=== PATIENT | female | born 1990 | race Caucasian/White ===

== ENCOUNTER 2016-09-02 19:39 | Emergency (ER) | payer BC ==
[2016-09-02 20:21] VITALS: BP 119/86
--- NOTE | 2016-09-02 21:39 | UC ---
UC General HPI - HPI Summary HPI Summary: The patient comes in today for: 1. "I've felt, dizzy, nauseated, flushed, fevers, chills, lower back pain, abdominal pain (RLQ): Onset: Yesterday. Palliative/provocative: Resting, drinking "a lot of water." Walking "around" makes me feel more dizzy or nauseated." Dramamine helped when taken yesterday. Quality: Dizzy (vertigo) Region: Abdominal pain (RLQ) Severity: (back: 6/10, abdomen: 5/10) Time: "fairly constant." Associated symptoms: Dizziness: she describes vertigo. Diarrhea: She states that this started yesterday. She has had 6/24 hours. Last one = "a couple hours ago." LMP: started yesterday and "I feel off." Temperature: None taken at home. * - History of Current Complaint Chief Complaint: UCGeneralIllness Stated Complaint: FEVERISH Time Seen by Provider: 09/02/16 21:31 Hx Obtained From: Patient - Allergy/Home Medications Allergies/Adverse Reactions: Allergies Allergy/AdvReac Type Severity Reaction Status Date / Time No Known Allergies Allergy Verified 09/02/16 20:21 Home Medications: Home Medications Cyclobenzaprine TAB* [Flexeril TAB*] 10 mg PO BID PRN 09/02/16 [History Confirmed 09/02/16] oxyCODONE/Acetamin 5/325 MG* [Percocet 5/325 TAB*] 1 tab PO Q4H PRN 09/02/16 [ History Confirmed 09/02/16] PMH/Surg Hx/FS Hx/Imm Hx Previously Healthy: No - Lower back pain, sciatica. Endocrine History Of: Denies: Diabetes, Thyroid Disease, Hyperthyroidism, Hypothyroidism, Dyslipidemia Cardiovascular History Of: Denies: Cardiac Disorders, Hypertension, Pacemaker/ICD, Myocardial Infarction , Congestive Heart Failure, Atrial Fibrillation, Deep Vein Thrombosis, Bleeding Disorders Respiratory History Of: Reports: Asthma - She does not use an inhaler regularly. Denies: COPD, Bronchitis, Pneumonia, Pulmonary Embolism GI/ History Of: Denies: Gastroesophageal Reflux, Ulcer, Gastrointestinal Bleed, Gall Bladder Disease, Kidney Stones, Diverticulitis, Renal Disease, Urosepsis Neurological History Of: Denies: TIA, CVA, Dementia, Seizures, Migraine Psychological History Of: Reports: Anxiety, Depression - pasr episode was treated with medications but stopped about 3 years ago as Denies: Bipolar Disorder, Schizophrenia, Post Traumatic Stress Disorder Cancer History Of: Denies: Lung Cancer, Colorectal Cancer, Breast Cancer, Prostate Cancer, Cervical Cancer Other History Of: Negative For: HIV, Hepatitis B, Hepatitis C, Anticoagulant Therapy - Surgical History Surgical History: None Surgery Procedure, Year, and Place: ADOIDS OUT WHEN A KID - Family History Known Family History: Positive: Hypertension, Diabetes Negative: Cardiac Disease - Social History Occupation: Employed Full-time Alcohol Use: Occasionally Substance Use Type: None Smoking Status (MU): Never Smoked Tobacco Review of Systems Constitutional: Negative Skin: Negative Eyes: Negative ENT: Negative Respiratory: Negative Cardiovascular: Negative Gastrointestinal: Abdominal Pain Genitourinary: Negative All Other Systems Reviewed And Are Negative: Yes Physical Exam Triage Information Reviewed: Yes Appearance: Well-Appearing, No Pain Distress, Well-Nourished Vital Signs: Initial Vital Signs Temp 98.5 F 09/02/16 20:17 Pulse 106 09/02/16 20:17 Resp 20 09/02/16 20:17 BP 119/86 09/02/16 20:17 Pulse Ox 100 09/02/16 20:17 Vital Signs Reviewed: Yes Eyes: Positive: Conjunctiva Clear. Negative: Discharge ENT: Positive: Hearing grossly normal. Negative: Pharyngeal erythema, Nasal congestion, Nasal drainage, TM bulging, TM dull, TM red, Tonsillar swelling, Tonsillar exudate Dental: Negative: Gross Decay/Caries @, Dental Fracture @ Neck: Positive: Supple, Nontender, No Lymphadenopathy. Negative: Nuchal Rigidity Respiratory: Positive: Chest non-tender, Lungs clear, No respiratory distress. Negative: Crackles, Wheezing Cardiovascular: Positive: RRR, No Murmur Abdomen Description: Positive: No Organomegaly, Soft. Negative: Nontender - She had minimal tenderness to the RLQ. No rebound or percussion tenderness., Distended, Guarding Musculoskeletal: Positive: Strength Intact, ROM Intact Neurological: Positive: Alert, Muscle Tone Normal Psychological: Positive: Age Appropriate Behavior, Consolable Skin: Negative: rashes, breakdown Course/Dx - Course Course Of Treatment: The patient was told that I don't know for sure why she is feeling what she is feeling, but suspect that she may very well have a viral infection causing her symptoms. I recommended medication for her vertigo/ nausea and she stated that she just wanted to go with the OT Dramamine. She was encouraged to measure her temperature at home and if she has a temperature higher than 100.4, she should be re-seen. She was given re-assurance that her urine was unremarkable. She was told that I did not know what was causing her abdominal pain. The patient was told that I don't know for sure what is causing her abdominal. pain. The patient was also told that there are many causes for abdominal pain--. some which are benign and some which are life- threatening. Furthermore, it was. mentioned that the life-threatening causes of abdominal pain can present with. minimal, atypical, or even no symptoms. Becasue of these facts and the fact. that we don't have here all the testing methods commonly used to assess abdominal. pain, and their timely resuts, my recommendation is for the patient to go to. the [facility] ([facility]) ER. However, she does not want to do that. - Differential Dx - Multi-Symptom Provider Diagnoses: vertigo. viral syndrome. abdominal pain. chronic lower back pain. Discharge - Discharge Plan Condition: Stable Disposition: AGAINST MEDICAL ADVICE Patient Education Materials: Abdominal Pain (ED), Vertigo (ED), Fatigue (ED) Additional Instructions: If you are not going to the ER for evaluation of your abdominal pain, please see your primary care provider as soon as you can.
== END 2016-09-02 22:00 | disposition left against medical advice (07) ==
LOC: MERGE 19:39 → UCEAST 19:39
DX: R42 Dizziness and giddiness (principal); B34.9 Viral infection, unspecified; R10.31 Right lower quadrant pain; M54.5 Low back pain
CPT/HCPCS: 81002; 99212; G0463

== ENCOUNTER 2016-09-05 19:10 | Emergency (ER) | payer BC ==
[2016-09-05] MEDS ORDERED: NS 0.9% 1000 ML* 1,000 ML IV ONE (19:30)
[2016-09-05] MEDS ORDERED: Ondansetron INJ* 2 MG/ML VIAL IV ONE (19:30)
[2016-09-05 19:54] LABS: Hematocrit 42 % (35-47); Mean Corpuscular HGB Conc 34 g/dl (31-36); Mean Corpuscular Hemoglobin 29 pg (27-31); Mean Corpuscular Volume 86 fL (80-97); Mean Platelet Volume 9 um3 (7.4-10.4); Red Blood Count 4.85 10^6/ul (4.0-5.4); Red Cell Distribution Width 13 % (10.5-15); White Blood Count 10.5 10^3/ul (3.5-10.8)
[2016-09-05 19:54] LABS: Urine Bacteria 1+ (Absent); Urine Bilirubin Negative (Negative); Urine Glucose Negative (Negative); Urine Nitrite Negative (Negative)
[2016-09-05 20:12] LABS: Albumin 4.6 g/dL (3.2-5.2); C Reactive Protein 1.46 mg/L (< 5.00); Calcium 9.4 mg/dL (8.6-10.3); EGFR African American 113.9 (>60); EGFR Non-African American 88.6 (>60); Magnesium 2.1 mg/dL (1.9-2.7); Potassium 3.3 mmol/L (3.5-5.0); Total Bilirubin 0.5 mg/dL (0.2-1.0); Total Protein 7.6 g/dL (6.4-8.9)
--- NOTE | 2016-09-05 20:20 | ED ---
Jose Bustos Billy, scribed for Oscar Spann MD on 09/05/16 at 1933 . Complex/Multi-Sys Presentation - HPI Summary HPI Summary: Patient is a 25 year-old female coming to [facility] with intermittent episodes of N/ V/D for 5 days. She had 1x episode of emesis, 3x episodes of diarrhea today. Denies fever. She has taken dramamine with some improvement to her symptoms. She also reports several "anxiety attacks" in the last few days, which she has had previously. She was seen at [facility] 2 days ago and was instructed to visit the ED if her symptoms failed to improve. - History Of Current Complaint Chief Complaint: EDNauseaVomitDiarrh Time Seen by Provider: 09/05/16 19:24 Hx Obtained From: Patient Onset/Duration: Gradual Onset, Lasting Days, Still Present Timing: Intermittent, Lasting: Severity Currently: Moderate Severity Initially: Moderate Aggravating Factor(s): n/a Alleviating Factor(s): dramamine Associated Signs And Symptoms: Positive: Nausea, Vomiting, Diarrhea, Other - "anxiety attacks". Negative: Fever - Allergies/Home Medications Allergies/Adverse Reactions: Allergies Allergy/AdvReac Type Severity Reaction Status Date / Time Acetaminophen [From Percocet] Allergy Shortness Verified 09/05/16 19:33 of Breath Oxycodone [From Percocet] Allergy Shortness Verified 09/05/16 19:33 of Breath PMH/Surg Hx/FS Hx/Imm Hx Endocrine/Hematology History: Denies: Hx Anticoagulant Therapy, Hx Diabetes, Hx Thyroid Disease Cardiovascular History: Denies: Hx Congestive Heart Failure, Hx Deep Vein Thrombosis, Hx Hypertension , Hx Myocardial Infarction, Hx Pacemaker/ICD Respiratory History: Reports: Hx Asthma - She does not use an inhaler regularly. Denies: Hx Chronic Obstructive Pulmonary Disease (COPD), Hx Lung Cancer, Hx Pneumonia, Hx Pulmonary Embolism GI History: Denies: Hx Gall Bladder Disease, Hx Gastrointestinal Bleed, Hx Ulcer, Hx Urosepsis History: Denies: Hx Kidney Stones, Hx Renal Disease Musculoskeletal History: Reports: Hx Back Problems Neurological History: Denies: Hx Dementia, Hx Migraine, Hx Seizures, Hx Transient Ischemic Attacks (TIA) Psychiatric History: Reports: Hx Anxiety, Hx Depression - pasr episode was treated with medications but stopped about 3 years ago as Denies: Hx Schizophrenia, Hx Bipolar Disorder - Surgical History Surgery Procedure, Year, and Place: ADOIDS OUT WHEN A KID Infectious Disease History: No Infectious Disease History: Denies: Hx Hepatitis, Hx Human Immunodeficiency Virus (HIV), History Other Infectious Disease, Traveled Outside the [place] in Last 30 Days - Family History Known Family History: Positive: Hypertension, Diabetes Negative: Cardiac Disease - Social History Alcohol Use: Occasionally Substance Use Type: Reports: None Smoking Status (MU): Never Smoked Tobacco Review of Systems Negative: Fever Positive: Vomiting, Diarrhea, Nausea Positive: Anxious - "anxiety attacks" All Other Systems Reviewed And Are Negative: Yes Physical Exam Triage Information Reviewed: Yes Vital Signs On Initial Exam: Initial Vitals Temp Pulse Resp BP Pulse Ox 98.8 F 101 15 147/77 100 09/05/16 19:12 09/05/16 19:12 09/05/16 19:12 09/05/16 19:12 09/05/16 19:12 Vital Signs Reviewed: Yes Appearance: Positive: Well-Appearing, No Pain Distress Skin: Positive: Warm Head/Face: Positive: Normal Head/Face Inspection Eyes: Positive: FRANDY ENT: Positive: Hearing grossly normal Neck: Positive: Supple Respiratory/Lung Sounds: Positive: Clear to Auscultation, Breath Sounds Present Cardiovascular: Positive: Normal Abdomen Description: Positive: Nontender, Soft Bowel Sounds: Positive: Present Neurological: Positive: Alert, Oriented to Person Place, Time Psychiatric: Positive: Affect/Mood Appropriate Diagnostics - Vital Signs Vital Signs Temp Pulse Resp BP Pulse Ox 09/05/16 19:12 98.8 F 101 15 147/77 100 - Laboratory Lab Results: Lab Results 09/05/16 09/05/16 09/05/16 Range/Units 19:35 19:45 19:45 WBC 10.5 (3.5-10.8) 10^3/ul RBC 4.85 (4.0-5.4) 10^6/ul Hgb 14.0 (12.0-16.0) g/dl Hct 42 (35-47) % MCV 86 (80-97) fL MCH 29 (27-31) pg MCHC 34 (31-36) g/dl RDW 13 (10.5-15) % Plt Count 285 (150-450) 10^3/ul MPV 9 (7.4-10.4) um3 Neut % (Auto) 69.0 (38-83) % Lymph % (Auto) 23.8 L (25-47) % [place] % (Auto) 5.6 (1-9) % Eos % (Auto) 1.0 (0-6) % Baso % (Auto) 0.6 (0-2) % Absolute Neuts (auto) 7.2 (1.5-7.7) 10^3/ul Absolute Lymphs (auto) 2.5 (1.0-4.8) 10^3/ul Absolute Monos (auto) 0.6 (0-0.8) 10^3/ul Absolute Eos (auto) 0.1 (0-0.6) 10^3/ul Absolute Basos (auto) 0.1 (0-0.2) 10^3/ul Absolute Nucleated RBC 0 10^3/ul Nucleated RBC % 0 Sodium 131 L (133-145) mmol/L Potassium 3.3 L (3.5-5.0) mmol/L Chloride 112 H (101-111) mmol/L Carbon Dioxide 23 (22-32) mmol/L Anion Gap -4 L (2-11) mmol/L BUN 7 (6-24) mg/dL Creatinine 0.78 (0.51-0.95) mg/dL Est GFR ( Amer) 113.9 (>60) Est GFR (Non-Af Amer) 88.6 (>60) BUN/Creatinine Ratio 9.0 (8-20) Glucose 101 H (70-100) mg/dL Lactic Acid (0.5-2.0) mmol/L Calcium 9.4 (8.6-10.3) mg/dL Magnesium 2.1 (1.9-2.7) mg/dL Total Bilirubin 0.50 (0.2-1.0) mg/dL AST 13 (13-39) U/L ALT 9 (7-52) U/L Alkaline Phosphatase 57 (34-104) U/L C-Reactive Protein 1.46 (< 5.00) mg/L Total Protein 7.6 (6.4-8.9) g/dL Albumin 4.6 (3.2-5.2) g/dL Globulin 3.0 (2-4) g/dL Albumin/Globulin Ratio 1.5 (1-3) Lipase 24 (11.0-82.0) U/L Urine Color Yellow Urine Appearance Clear Urine pH 5.0 (5-9) Ur Specific [place] 1.011 (1.010-1.030) Urine Protein Negative (Negative) Urine Ketones 1+ H (Negative) Urine Blood 1+ H (Negative) Urine Nitrate Negative (Negative) Urine Bilirubin Negative (Negative) Urine Urobilinogen Negative (Negative) Ur Leukocyte Esterase Negative (Negative) Urine WBC (Auto) Trace(0-5/hpf) (Absent) Urine RBC (Auto) Trace(0-2/hpf) (Absent) Ur Squamous Epith Cells Present H (Absent) Urine Bacteria 1+ H (Absent) Urine Glucose Negative (Negative) 09/05/16 Range/Units 19:45 WBC (3.5-10.8) 10^3/ul RBC (4.0-5.4) 10^6/ul Hgb (12.0-16.0) g/dl Hct (35-47) % MCV (80-97) fL MCH (27-31) pg MCHC (31-36) g/dl RDW (10.5-15) % Plt Count (150-450) 10^3/ul MPV (7.4-10.4) um3 Neut % (Auto) (38-83) % Lymph % (Auto) (25-47) % [place] % (Auto) (1-9) % Eos % (Auto) (0-6) % Baso % (Auto) (0-2) % Absolute Neuts (auto) (1.5-7.7) 10^3/ul Absolute Lymphs (auto) (1.0-4.8) 10^3/ul Absolute Monos (auto) (0-0.8) 10^3/ul Absolute Eos (auto) (0-0.6) 10^3/ul Absolute Basos (auto) (0-0.2) 10^3/ul Absolute Nucleated RBC 10^3/ul Nucleated RBC % Sodium (133-145) mmol/L Potassium (3.5-5.0) mmol/L Chloride (101-111) mmol/L Carbon Dioxide (22-32) mmol/L Anion Gap (2-11) mmol/L BUN (6-24) mg/dL Creatinine (0.51-0.95) mg/dL Est GFR ( Amer) (>60) Est GFR (Non-Af Amer) (>60) BUN/Creatinine Ratio (8-20) Glucose (70-100) mg/dL Lactic Acid 1.0 (0.5-2.0) mmol/L Calcium (8.6-10.3) mg/dL Magnesium (1.9-2.7) mg/dL Total Bilirubin (0.2-1.0) mg/dL AST (13-39) U/L ALT (7-52) U/L Alkaline Phosphatase (34-104) U/L C-Reactive Protein (< 5.00) mg/L Total Protein (6.4-8.9) g/dL Albumin (3.2-5.2) g/dL Globulin (2-4) g/dL Albumin/Globulin Ratio (1-3) Lipase (11.0-82.0) U/L Urine Color Urine Appearance Urine pH (5-9) Ur Specific [place] (1.010-1.030) Urine Protein (Negative) Urine Ketones (Negative) Urine Blood (Negative) Urine Nitrate (Negative) Urine Bilirubin (Negative) Urine Urobilinogen (Negative) Ur Leukocyte Esterase (Negative) Urine WBC (Auto) (Absent) Urine RBC (Auto) (Absent) Ur Squamous Epith Cells (Absent) Urine Bacteria (Absent) Urine Glucose (Negative) Result Diagrams: 09/05/16 19:45 09/05/16 19:45 Lab Statement: Any lab studies that have been ordered have been reviewed, and results considered in the medical decision making process. Re-Evaluation - Re-Evaluation First Eval Change: Improved Complex Multi-Symp Course/Dx Assessment/Plan: 25 y/o female coming to the ED with CC of 5 days of N/V/D. No fever. Sx improved in the ED with Zofran and IV fluids. She will be discharged to follow up with PCP. - Diagnoses Provider Diagnoses: Nausea & vomiting Discharge - Discharge Plan Condition: Stable Disposition: HOME Patient Education Materials: Diet for Ulcers and Gastritis (ED) Referrals: Joy Lazo PA [Primary Care Provider] - Additional Instructions: INCREASE FLUID INTAKE AND FOLLOW UP WITH YOUR PRIMARY CARE PROVIDER. The documentation as recorded by the Jose toro Billy accurately reflects the service I personally performed and the decisions made by , Oscar Spann MD.
[2016-09-05 21:07] VITALS: BP 122/75
== END 2016-09-05 21:14 | disposition home or self-care (01) ==
LOC: MERGE 19:10 → ED 19:10
DX: R11.2 Nausea with vomiting, unspecified (principal); Z95.810 Presence of automatic (implantable) cardiac defibrillator; Z88.5 Allergy status to narcotic agent
CPT/HCPCS: 36415; 80053; 81003; 81015; 83605; 83690; 83735; 85025; 86140; 87086; 96360; 96365; 96374; 99283; J2405

== ENCOUNTER 2016-09-08 10:40 | Emergency (ER) | payer BC ==
[2016-09-08] MEDS ORDERED: NS 0.9% 1000 ML* 1,000 ML IV ONE (12:03)
[2016-09-08] MEDS ORDERED: Ondansetron INJ* 2 MG/ML VIAL IV ONE (12:19)
--- NOTE | 2016-09-08 13:05 | RAD ---
HISTORY: Nausea and diarrhea COMPARISONS: None VIEWS: Frontal views of the abdomen. FINDINGS: BOWEL: There is a nonspecific bowel gas pattern, with nondilated small bowel gas noted. There is large amount of stool within the proximal colon. CALCULI: There is high attenuation material overlying the left hemiabdomen BONES AND SOFT TISSUES: There are no osseous abnormalities. OTHER FINDINGS: The lung bases are clear. There is no subphrenic gas. IMPRESSION: 1. NONSPECIFIC BOWEL GAS PATTERN. LARGE AMOUNT OF STOOL WITHIN THE PROXIMAL COLON. HIGH ATTENUATION MATERIAL OVERLYING THE LEFT HEMIABDOMEN WHICH MAY REPRESENT HIGH ATTENUATION BOWEL CONTENTS VERSUS DYSTROPHIC CALCIFICATION. THIS APPEARS EXTRINSIC TO THE RENAL PARENCHYMAL SHADOW.
[2016-09-08 13:13] LABS: Hematocrit 42 % (35-47); Mean Corpuscular HGB Conc 34 g/dl (31-36); Mean Corpuscular Hemoglobin 29 pg (27-31); Mean Corpuscular Volume 86 fL (80-97); Mean Platelet Volume 10 um3 (7.4-10.4); Red Blood Count 4.85 10^6/ul (4.0-5.4); Red Cell Distribution Width 13 % (10.5-15); White Blood Count 9.2 10^3/ul (3.5-10.8)
[2016-09-08 13:19] LABS: Urine Bilirubin Negative (Negative); Urine Glucose Negative (Negative); Urine Nitrite Negative (Negative)
[2016-09-08 13:47] LABS: ALT 9 U/L (7-52); AST 13 U/L (13-39); Albumin 4.5 g/dL (3.2-5.2); Alkaline Phosphatase 60 U/L (34-104); Amylase 36 U/L (29-103); Anion Gap 8 mmol/L (2-11); BUN/Creatinine Ratio 8.2 (8-20); Blood Urea Nitrogen 6 mg/dL (6-24); C Reactive Protein 1.27 mg/L (< 5.00); CO2 Carbon Dioxide 24 mmol/L (22-32); Calcium 9.6 mg/dL (8.6-10.3); Chloride 106 mmol/L (101-111); EGFR Non-African American 95.6 (>60); Globulin 2.9 g/dL (2-4); Glucose 96 mg/dL (70-100); Lipase 26 U/L (11.0-82.0); Magnesium 2.3 mg/dL (1.9-2.7); Potassium 3.7 mmol/L (3.5-5.0); Sodium 138 mmol/L (133-145); Total Protein 7.4 g/dL (6.4-8.9)
[2016-09-08] MEDS ORDERED: hydrOXYzine HCL TAB* 50 MG PO ONE (14:00)
--- NOTE | 2016-09-08 14:01 | ED ---
I, Isaías,Terrance, scribed for Anand Hooks MD on 09/08/16 at 1252 . GI/ HPI - HPI Summary HPI Summary: This 25 y/o female presents to ED for nausea and persistent watery diarrhea since 1 week. Pt was evaluated in [facility] care and ED several times with similar complaints over the last week. Pt decided to visit ED today when she experienced lightheaded dizziness and became concerned with her electrolytes. She also reports a bout of sciatic pain and increased anxiety today. PMHx does include anxiety. FHx is positive for DM, cardiac dz, and unspecified CA. Pt is rare drinker and nonsmoker. - History of Current Complaint Chief Complaint: EDNauseaVomitDiarrh Time Seen by Provider: 09/08/16 12:03 Stated Complaint: NAUSEA /DIARRHEA/LIGHT HEADED Hx Obtained From: Patient Onset/Duration: Started Weeks Ago, Still Present Timing: Constant Pain Intensity: 7 Location of Pain: None Associated Signs and Symptoms: Positive: Dizziness - lightheadedness, Nausea, Diarrhea, Lightheadedness. Negative: Fever Aggravating Factor(s): Nothing Alleviating Factor(s): Nothing - Allergy/Home Medications Allergies/Adverse Reactions: Allergies Allergy/AdvReac Type Severity Reaction Status Date / Time Acetaminophen [From Percocet] Allergy Shortness Verified 09/08/16 11:12 of Breath Oxycodone [From Percocet] Allergy Shortness Verified 09/08/16 11:12 of Breath PMH/Surg Hx/FS Hx/Imm Hx Endocrine/Hematology History: Denies: Hx Anticoagulant Therapy, Hx Diabetes, Hx Thyroid Disease Cardiovascular History: Denies: Hx Congestive Heart Failure, Hx Deep Vein Thrombosis, Hx Hypertension , Hx Myocardial Infarction, Hx Pacemaker/ICD Respiratory History: Reports: Hx Asthma - She does not use an inhaler regularly. Denies: Hx Chronic Obstructive Pulmonary Disease (COPD), Hx Lung Cancer, Hx Pneumonia, Hx Pulmonary Embolism GI History: Denies: Hx Gall Bladder Disease, Hx Gastrointestinal Bleed, Hx Ulcer, Hx Urosepsis History: Denies: Hx Kidney Stones, Hx Renal Disease Musculoskeletal History: Reports: Hx Back Problems Neurological History: Denies: Hx Dementia, Hx Migraine, Hx Seizures, Hx Transient Ischemic Attacks (TIA) Psychiatric History: Reports: Hx Anxiety, Hx Depression - pasr episode was treated with medications but stopped about 3 years ago as Denies: Hx Schizophrenia, Hx Bipolar Disorder - Surgical History Surgery Procedure, Year, and Place: ADOIDS OUT WHEN A KID - Immunization History Date of Tetanus Vaccine: unk Date of Influenza Vaccine: none Infectious Disease History: No Infectious Disease History: Denies: Hx Hepatitis, Hx Human Immunodeficiency Virus (HIV), History Other Infectious Disease, Traveled Outside the [place] in Last 30 Days - Family History Known Family History: Positive: Hypertension, Diabetes, Other - unspecified CA Negative: Cardiac Disease - Social History Alcohol Use: Occasionally Hx Substance Use: No Substance Use Type: Reports: None Hx Tobacco Use: No Smoking Status (MU): Never Smoked Tobacco Review of Systems Negative: Fever Positive: Diarrhea, Nausea. Negative: Abdominal Pain Positive: Other - sciatic pain Positive: Anxious All Other Systems Reviewed And Are Negative: Yes Physical Exam - Summary Physical Exam Summary: VITAL SIGNS: Reviewed. GENERAL: Patient is an obese female who is lying comfortable in the stretcher. Patient is not in any acute respiratory distress. HEAD AND FACE: Normocephalic and atraumatic. EYES: PERRLA, EOMI x 2, No injected conjunctiva. EARS: Hearing grossly intact. Ear canals and tympanic membranes are WNL. MOUTH: Oropharynx within normal limits. NECK: Supple, trachea is midline, no adenopathy, no JVD. CHEST: Symmetric, no tenderness at palpation LUNGS: Clear to auscultation bilaterally. No wheezing or crackles. CVS: RRR,, S1 and S2 present, no murmurs or gallops appreciated. ABDOMEN: Soft, non-tender. No signs of distention. Positive bowel sounds. No rebound no guarding, and no masses palpated. No abdominal bruit or pulsations. EXTREMITIES: FROM in all major joints, no edema, no cyanosis or clubbing. NEURO: Alert and oriented x 3. No acute neurological deficits. Speech is normal. SKIN: Dry and warm Triage Information Reviewed: Yes Vital Signs On Initial Exam: Initial Vitals Temp Pulse Resp BP Pulse Ox 100.2 F 89 16 118/79 100 09/08/16 10:48 09/08/16 10:48 09/08/16 10:48 09/08/16 10:48 09/08/16 10:48 Vital Signs Reviewed: Yes - [place] Coma Scale Coma Scale Total: 15 Diagnostics - Vital Signs Vital Signs Temp Pulse Resp BP Pulse Ox 09/08/16 10:48 100.2 F 89 16 118/79 100 - Laboratory Result Diagrams: 09/08/16 12:55 09/08/16 12:55 Lab Statement: Any lab studies that have been ordered have been reviewed, and results considered in the medical decision making process. - Radiology Abd Xray Interpretation: Positive (See Comments) - NONSPECIFIC BOWEL GAS PATTERN. LARGE AMOUNT OF STOOL WITHIN THE PROXIMAL COLON. HIGH ATTENUATION MATERIAL OVERLYING THE LEFT HEMIABDOMEN WHICH MAY REPRESENT HIGH ATTENUATION BOWEL CONTENTS VERSUS DYSTROPHIC CALCIFICATION. THIS APPEARS EXTRINSIC TO THE RENAL PARENCHYMAL SHADOW. Radiology Interpretation Completed By: Radiologist [place] Course/Dx - Course Assessment/Plan: 25 y/o female here c / o nausea, vomiting and diarrhea since last Wednesday. She reports diarrhea is watery w/o blood or mucus. She denies any recent travel, sick contacts or antibiotic use. She reports no abdominal pain. She also reports exacerbation of a right sciatic pain and anxiety. She denies any vaginal bleeding or discharge. She has no other complaints. P/E wnl.\. Abdominal X-ray impression: Nonspecific bowel gas pattern. Large amount of stool with the proximal colon. After hydration with IV fluids and Zofran for nausea and vomiting patient is feeling much improved. Patient has not been able to give a stool sample. She declines a pelvic exam since she has no vaginal discharge or bleeding. I discussed all the findings and test results with the patient and patient. Patient was instructed to return to the emergency room immediately if any of the symptoms return or worsens. They understand and agree. They were explained the possibility of an early abdominal pathology which was not detected at this time despite the physical exam and testing. They understand and agree. Abdominal exam before discharge: Soft,NT. No signs of distention. BS present. No rebound no guarding, and no masses palpated. Patient is alert and oriented. Patient is hemodynamically stable. Patient is to follow up with primary care physician in the next 24 hours. Patient and patients parents agree and understands. - Diagnoses Differential Diagnoses - Female: Constipation, Colitis, Gastroenteritis (Viral) , Gastroenteritis (Bacterial), Gerd, Irritable Bowel Syndrome Provider Diagnoses: Nausea vomiting and diarrhea Discharge - Discharge Plan Condition: Stable Disposition: HOME Prescriptions: Ondansetron ODT TAB* [Zofran Odt TAB*] 4 mg PO Q8H PRN #10 tab.odt PRN Reason: Vomiting Referrals: Joy Lazo PA [Primary Care Provider] - The documentation as recorded by the Isaías toro Soohyun accurately reflects the service I personally performed and the decisions made by me, Anand Hooks MD.
[2016-09-08] MEDS ORDERED: hydrOXYzine HCL TAB* 25 MG ONE (14:27)
[2016-09-08 14:41] VITALS: BP 130/69
== END 2016-09-08 14:40 | disposition home or self-care (01) ==
LOC: MERGE 10:40 → ED 10:40
DX: R11.2 Nausea with vomiting, unspecified (principal); R19.7 Diarrhea, unspecified; Z88.5 Allergy status to narcotic agent; Z88.6 Allergy status to analgesic agent
CPT/HCPCS: 36415; 74020; 80053; 81003; 82150; 83605; 83690; 83735; 84702; 85025; 86140; 96361; 96374; 99283; A9270-GY; J2405

== ENCOUNTER 2016-10-12 00:47 | Emergency (ER) | payer BC ==
[2016-10-12] MEDS ORDERED: NS 0.9% 1000 ML* 1,000 ML IV ONE (01:34)
[2016-10-12] MEDS ORDERED: Ondansetron INJ* 2 MG/ML VIAL IV ONE (02:10)
[2016-10-12] MEDS: Morphine INJ* 4 MG/ML 1 ML CARPUJECT IV ONE ×3 (02:15→05:32)
[2016-10-12 02:20] LABS: Hematocrit 40 % (35-47); Hemoglobin 13.3 g/dl (12.0-16.0); Mean Corpuscular HGB Conc 34 g/dl (31-36); Mean Corpuscular Hemoglobin 29 pg (27-31); Mean Corpuscular Volume 85 fL (80-97); Mean Platelet Volume 10 um3 (7.4-10.4); Red Blood Count 4.65 10^6/ul (4.0-5.4); Red Cell Distribution Width 13 % (10.5-15); White Blood Count 10.8 10^3/ul (3.5-10.8)
[2016-10-12 02:21] LABS: Add Diff/Slide Review? Slide Review Added; Comments Flag Yes
[2016-10-12 02:31] LABS: Albumin 4.3 g/dL (3.2-5.2); Calcium 9.3 mg/dL (8.6-10.3); EGFR Non-African American 98.7 (>60); Globulin 2.7 g/dL (2-4); Potassium 3.3 mmol/L (3.5-5.0); Total Bilirubin 0.9 mg/dL (0.2-1.0)
[2016-10-12 03:30] LABS: Urine Bacteria Absent (Absent); Urine Bilirubin Negative (Negative); Urine Glucose Negative (Negative); Urine Nitrite Negative (Negative)
[2016-10-12] MEDS ORDERED: Iohexol 300* (CONTRAST) 10 ML SDV IV ONE (04:06)
[2016-10-12 05:34] VITALS: BP 114/75
--- NOTE | 2016-10-12 06:28 | ED ---
Sunni Bustos Matthew, scribed for Elias Lei MD on 10/12/16 at 0150 . Abdominal Pain/Female - HPI Summary HPI Summary: A 25 y/o female presents to the ED with diffuse lower abdominal pain and bilateral flank pain since 10/07/16. The pain is rated 6/10 in severity. The patient started a course of Augmentin on 10/07/16 for an ear infection. Associated symptoms currently include SOB - which caused the patient to present to the ED today, lightheadedness, dizziness, more frequent loose stools, occasional diarrhea, and vomiting - only on 10/07/16. The patient denies blood w/ stool, urinary symptoms, and nausea. The patient had similar symptom in the beginning of August for 2 weeks, which resolved and have now returned. - History of Current Complaint Chief Complaint: EDAbdPain Stated Complaint: ABD PAIN Time Seen by Provider: 10/12/16 01:05 Hx Obtained From: Patient Hx Last Menstrual Period: yesterday ?: No Onset/Duration: Gradual Onset, Lasting Days, Still Present Timing: Constant Severity Initially: Moderate Severity Currently: Moderate Pain Intensity: 6 Pain Scale Used: 0-10 Numeric Location: Diffuse - lower abdominal, Flank - bilateral Radiates: No Aggravating Factor(s): Nothing Alleviating Factor(s): Nothing Associated Signs and Symptoms: Positive: Vomiting - only one 10/07/16, Diarrhea - Ocassional, Other: - SOB; Lightheadedness; Dizziness; Ocassional loose stools.. Negative: Blood in Stool, Urinary Symptoms, Nausea Allergies/Adverse Reactions: Allergies Allergy/AdvReac Type Severity Reaction Status Date / Time Acetaminophen [From Percocet] Allergy Shortness Verified 09/08/16 11:12 of Breath Oxycodone [From Percocet] Allergy Shortness Verified 09/08/16 11:12 of Breath PMH/Surg Hx/FS Hx/Imm Hx Endocrine/Hematology History: Denies: Hx Anticoagulant Therapy, Hx Diabetes, Hx Thyroid Disease Cardiovascular History: Denies: Hx Congestive Heart Failure, Hx Deep Vein Thrombosis, Hx Hypertension , Hx Myocardial Infarction, Hx Pacemaker/ICD Respiratory History: Reports: Hx Asthma - She does not use an inhaler regularly. Denies: Hx Chronic Obstructive Pulmonary Disease (COPD), Hx Lung Cancer, Hx Pneumonia, Hx Pulmonary Embolism GI History: Denies: Hx Gall Bladder Disease, Hx Gastrointestinal Bleed, Hx Ulcer, Hx Urosepsis History: Denies: Hx Kidney Stones, Hx Renal Disease Musculoskeletal History: Reports: Hx Back Problems Neurological History: Reports: Other Neuro Impairments/Disorders - Hx of sciatica Denies: Hx Dementia, Hx Migraine, Hx Seizures, Hx Transient Ischemic Attacks (TIA) Psychiatric History: Reports: Hx Anxiety, Hx Depression - pasr episode was treated with medications but stopped about 3 years ago as Denies: Hx Schizophrenia, Hx Bipolar Disorder - Surgical History Surgery Procedure, Year, and Place: ADOIDS OUT WHEN A KID - Immunization History Date of Tetanus Vaccine: unk Date of Influenza Vaccine: none Infectious Disease History: No Infectious Disease History: Denies: Hx Hepatitis, Hx Human Immunodeficiency Virus (HIV), History Other Infectious Disease, Traveled Outside the [place] in Last 30 Days - Family History Known Family History: Positive: Hypertension, Diabetes, Other - unspecified [place] Negative: Cardiac Disease - Social History Alcohol Use: Occasionally Hx Substance Use: No Substance Use Type: Reports: None Hx Tobacco Use: No Smoking Status (MU): Never Smoked Tobacco Review of Systems Constitutional: Negative Negative: Fever, Chills Eyes: Negative Negative: Erythema ENT: Negative Negative: Sore Throat Cardiovascular: Negative Negative: Chest Pain Positive: Shortness Of Breath Positive: Abdominal Pain - diffuse lower abdominal pain and bilateral flank pain , Vomiting - only on 10/07/16, Diarrhea. Negative: Nausea Genitourinary: Negative Negative: dysuria, hematuria Musculoskeletal: Other Negative: Myalgia, Edema - pedal Skin: Negative Negative: Rash Neurological: Other - Lightheadedness; Dizziness Psychological: Normal All Other Systems Reviewed And Are Negative: Yes Physical Exam Triage Information Reviewed: Yes Vital Signs On Initial Exam: Initial Vitals Temp Pulse Resp BP Pulse Ox 97.5 F 95 16 135/82 100 10/12/16 00:47 10/12/16 00:47 10/12/16 00:47 10/12/16 00:47 10/12/16 00:47 Vital Signs Reviewed: Yes Appearance: Positive: Well-Appearing, No Pain Distress, Well-Nourished Skin: Positive: Warm, Dry Head/Face: Positive: Other - Normocephalic; Atraumatic Eyes: Positive: Conjunctiva Clear Neck: Positive: Supple, No Lymphadenopathy, Other: - Full ROM; NO JVD Respiratory/Lung Sounds: Positive: Breath Sounds Present, Other - Normal Effort. Negative: Rales, Rhonchi, Stridor, Tracheal Deviation, Wheezes Cardiovascular: Positive: RRR, Other - Heart sounds normal; Intact distal pulses ; The pedal pulses are 2+ and symmetric. Radial pulses are 2+ and symmetric. Negative: Murmur Abdomen Description: Positive: Soft, Other: - RLQ tenderness; Negative psoas, negative obturator, negative Rovsings sign Musculoskeletal: Negative: Edema Left, Edema Right Neurological: Positive: Alert, Oriented to Person Place, Time Psychiatric: Positive: Affect/Mood Appropriate Diagnostics - Vital Signs Vital Signs Temp Pulse Resp BP Pulse Ox 10/12/16 00:47 97.5 F 95 16 135/82 100 - Laboratory Result Diagrams: 10/12/16 02:05 10/12/16 02:05 Lab Statement: Any lab studies that have been ordered have been reviewed, and results considered in the medical decision making process. - CT A/P W CT CT Interpretation: No Acute Changes - No inflammatory process identified in the abdomen or pelvis. No abdominal mass, adenopathy or collection seen. Right adnexal cyst noted. Abdominal Pain Fem Course/Dx - Diagnoses Provider Diagnoses: Adverse effect of antibiotic, Diarrhea, Unspecified ovarian cyst, right side Discharge - Discharge Plan Condition: Stable Disposition: HOME Patient Education Materials: Ovarian Cyst (ED), Acute Diarrhea (ED) Referrals: Joy Lazo PA [Primary Care Provider] - 2 Days Additional Instructions: Please follow-up with your primary care physician in 2 days. Return to the emergency department for changing or worsening symptoms The documentation as recorded by the Sunni toro Matthew accurately reflects the service I personally performed and the decisions made by me, Elias Lei MD.
--- NOTE | 2016-10-12 09:19 | RAD ---
CLINICAL HISTORY: Right lower quadrant tenderness. COMPARISON: None TECHNIQUE: Multiple contiguous axial CT scans were obtained of the abdomen and pelvis after the administration of intravenous contrast. Coronal and sagittal multiplanar reformations are submitted for review. Oral contrast was administered. Delayed images were obtained through the abdomen FINDINGS: LUNG BASES: The lung bases are clear. LIVER: The liver is diffusely low in attenuation compared to the spleen. There is more focal fatty infiltration along the ligamentum teres hepatis. BILE DUCTS: There is no intrahepatic or extrahepatic biliary dilatation. GALLBLADDER: The gallbladder is normal, without pericholecystic inflammatory change. PANCREAS: The pancreas is normal, without mass or ductal dilatation. SPLEEN: Normal in size and appearance. UPPER GI TRACT: Evaluation of the gastrointestinal tract is limited by incomplete gastric distention. The upper GI tract is unremarkable. SMALL BOWEL AND MESENTERY: The small bowel is normal in contour, course, and caliber. There is no obstruction or dilatation. COLON: The colon is normal in contour, course, caliber. There is no pericolonic inflammatory change. There is a tubular, vermiform, hollow viscus that is blind ending, and originates from the cecum, consistent with a normal appendix. There is no periappendiceal inflammatory change. This is best seen on axial images 124 through 143. ADRENALS: Normal bilaterally. KIDNEYS: The kidneys are normal in shape, size, contour, and axis. There is no hydronephrosis or nephrolithiasis. BLADDER: The bladder is incompletely distended but is grossly normal. PELVIC ORGANS: There is 2.5 cm right ovarian cyst. AORTA: The aorta is normal. IVC: Unremarkable LYMPH NODES: There is no lymphadenopathy by size criteria. ABDOMINAL WALL: There is no evidence for abdominal wall hernia. BONES AND SOFT TISSUES: Degenerative changes are noted of the spine most pronounced at L4-L5 and L5-S1. OTHER: None IMPRESSION: 1. NORMAL APPENDIX. 2. RIGHT OVARIAN CYST.
== END 2016-10-12 05:33 | disposition home or self-care (01) ==
LOC: ED 00:47
DX: R10.30 Lower abdominal pain, unspecified (principal); N83.201 Unspecified ovarian cyst, right side; R11.10 Vomiting, unspecified; R19.7 Diarrhea, unspecified; R06.02 Shortness of breath; R42 Dizziness and giddiness
CPT/HCPCS: 36415; 74177; 80053; 81003; 81015; 83605; 83690; 85025; 96374; 99283; J2270; J2405; Q9967

== ENCOUNTER 2016-10-17 16:49 | Emergency (ER) | payer BC ==
[2016-10-17 16:55] VITALS: BP 128/81
--- NOTE | 2016-10-17 17:42 | ED ---
Throat Pain/Nasal Congestion - HPI Summary HPI Summary: 25 female presents coming from work complaining of being nervous a probiotic pill went into her lungs. Patient said she was at work when she took a probiotic pill that seemed to have went down the wrong tube she was choking and vomited however the pill never came up. Does admit to feeling like some of the water may have went into her lungs. She is fine now and has not coughed or vomited since. She states she has anxiety and wanted to make sure it wasn't in her lungs. No difficulty breathing or chest pain. Denies hemoptysis. - History of Current Complaint Chief Complaint: EDForeignBodyEsophag Time Seen by Provider: 10/17/16 17:10 Hx Obtained From: Patient Onset/Duration: Sudden Onset Severity: Mild Associated Signs And Symptoms: Positive: FB Sensation - during incident, no longer has this sensation - Allergies/Home Medications Allergies/Adverse Reactions: Allergies Allergy/AdvReac Type Severity Reaction Status Date / Time Acetaminophen [From Percocet] Allergy Shortness Verified 09/08/16 11:12 of Breath Oxycodone [From Percocet] Allergy Shortness Verified 09/08/16 11:12 of Breath PMH/Surg Hx/FS Hx/Imm Hx Endocrine/Hematology History: Denies: Hx Anticoagulant Therapy, Hx Diabetes, Hx Thyroid Disease Cardiovascular History: Denies: Hx Congestive Heart Failure, Hx Deep Vein Thrombosis, Hx Hypertension , Hx Myocardial Infarction, Hx Pacemaker/ICD Respiratory History: Reports: Hx Asthma - She does not use an inhaler regularly. Denies: Hx Chronic Obstructive Pulmonary Disease (COPD), Hx Lung Cancer, Hx Pneumonia, Hx Pulmonary Embolism GI History: Denies: Hx Gall Bladder Disease, Hx Gastrointestinal Bleed, Hx Ulcer, Hx Urosepsis History: Denies: Hx Kidney Stones, Hx Renal Disease Musculoskeletal History: Reports: Hx Back Problems Neurological History: Reports: Other Neuro Impairments/Disorders - Hx of sciatica Denies: Hx Dementia, Hx Migraine, Hx Seizures, Hx Transient Ischemic Attacks (TIA) Psychiatric History: Reports: Hx Anxiety, Hx Depression - pasr episode was treated with medications but stopped about 3 years ago as Denies: Hx Schizophrenia, Hx Bipolar Disorder - Surgical History Surgery Procedure, Year, and Place: ADOIDS OUT WHEN A KID - Immunization History Date of Tetanus Vaccine: unk Date of Influenza Vaccine: none Infectious Disease History: No Infectious Disease History: Denies: Hx Hepatitis, Hx Human Immunodeficiency Virus (HIV), History Other Infectious Disease, Traveled Outside the [place] in Last 30 Days - Family History Known Family History: Positive: Hypertension, Diabetes, Other - unspecified [place] Negative: Cardiac Disease - Social History Alcohol Use: Occasionally Hx Substance Use: No Substance Use Type: Reports: None Hx Tobacco Use: No Smoking Status (MU): Never Smoked Tobacco Review of Systems Constitutional: Negative ENT: Negative Cardiovascular: Negative Respiratory: Negative 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 Neurological: Negative Positive: Anxious All Other Systems Reviewed And Are Negative: Yes Physical Exam Triage Information Reviewed: Yes Vital Signs On Initial Exam: Initial Vitals Temp Pulse Resp BP Pulse Ox 98.2 F 106 18 128/81 100 10/17/16 16:51 10/17/16 16:51 10/17/16 16:51 10/17/16 16:51 10/17/16 16:51 Vital Signs Reviewed: Yes Appearance: Positive: Well-Appearing - appears anxious, not coughing choking or vomiting on exam or while in ED., No Pain Distress, Well-Nourished Skin: Positive: Warm, Skin Color Reflects Adequate Perfusion - < 2 seconds, Dry Head/Face: Positive: Normal Head/Face Inspection Eyes: Positive: Normal, Conjunctiva Clear ENT: Positive: Normal ENT inspection, Hearing grossly normal, Pharynx normal, TMs normal Neck: Positive: Supple, Nontender, No Lymphadenopathy Respiratory/Lung Sounds: Positive: Clear to Auscultation, Breath Sounds Present. Negative: Decreased Breath Sounds, Rales, Rhonchi, Stridor, Tracheal Deviation, Wheezes, Unable to speak in full sentences Cardiovascular: Positive: Normal, RRR, Pulses are Symmetrical in both Upper and Lower Extremities, Tachycardia Neurological: Positive: Normal, Sensory/Motor Intact Psychiatric: Positive: Normal Diagnostics - Vital Signs Vital Signs Temp Pulse Resp BP Pulse Ox 10/17/16 16:51 98.2 F 106 18 128/81 100 - Laboratory Lab Statement: Any lab studies that have been ordered have been reviewed, and results considered in the medical decision making process. EENT Course/Dx - Course Course Of Treatment: patient was given a glass of water and was able to drink without any problem. she is no longer having coughing fits or vomiting. no longer feels a foreign body sensation. does not have difficulty breathing, SOB or chest pain. She will be discharged and re-assured that the pill did not go into her trachea. - Differential Diagnoses Differential Diagnoses: Foreign Body - Diagnoses Provider Diagnoses: Choking due to foreign body Discharge - Discharge Plan Condition: Stable Disposition: HOME Referrals: Joy Lazo PA [Primary Care Provider] - Additional Instructions: If you start to develop symptoms of being unable to eat or drink or difficulty breathing please seek medical attention promptly.
== END 2016-10-17 18:02 | disposition home or self-care (01) ==
LOC: ED 16:49
DX: T18.8XXA Foreign body in other parts of alimentary tract, initial encounter (principal); X58.XXXA Exposure to other specified factors, initial encounter; Y93.9 Activity, unspecified; Y92.9 Unspecified place or not applicable; R09.89 Other specified symptoms and signs involving the circulatory and respiratory systems
CPT/HCPCS: 99281

== ENCOUNTER 2016-10-18 09:26 | Emergency (ER) | payer BC ==
[2016-10-18 09:38] VITALS: BP 146/93
--- NOTE | 2016-10-18 09:57 | UC ---
UC General HPI - HPI Summary HPI Summary: complaint of anxiety and panic attacks since the beginning of 08/14 since July has had many illness- otitis media, gastroenteritis this past week started buspar with Joy SHEEHAN - started to see a therapist feels that the medication is starting to work but still feels anxiety about her health went to ED last night seen in ED for swallowing a probitoic and protein shake- wants her lung sounds rechecked not sleeping well - aprox 2-3 hours at a time not having any thoughts of self harm/suicide has a cysts on her back for many years, 2 years got infected and ruptured - today it is slightly swollen , not painful or warm - History of Current Complaint Chief Complaint: UCGeneralIllness Stated Complaint: HEART RACING LUMP ON BACK Time Seen by Provider: 10/18/16 09:48 - Allergy/Home Medications Allergies/Adverse Reactions: Allergies Allergy/AdvReac Type Severity Reaction Status Date / Time Acetaminophen [From Percocet] Allergy Shortness Verified 09/08/16 11:12 of Breath Oxycodone [From Percocet] Allergy Shortness Verified 09/08/16 11:12 of Breath Home Medications: Home Medications Citalopram TAB* [CeleXA TAB*] 10 mg PO DAILY 10/18/16 [History Confirmed ] busPIRone TAB* [Buspar TAB*] 5 mg PO BID 10/18/16 [History Confirmed 10/18/16] PMH/Surg Hx/FS Hx/Imm Hx Previously Healthy: No - anixety Endocrine History Of: Denies: Diabetes, Thyroid Disease, Hyperthyroidism, Hypothyroidism, Dyslipidemia Cardiovascular History Of: Denies: Cardiac Disorders, Hypertension, Pacemaker/ICD, Myocardial Infarction , Congestive Heart Failure, Atrial Fibrillation, Deep Vein Thrombosis, Bleeding Disorders Respiratory History Of: Reports: Asthma - She does not use an inhaler regularly. Denies: COPD, Bronchitis, Pneumonia, Pulmonary Embolism GI/ History Of: Denies: Gastroesophageal Reflux, Ulcer, Gastrointestinal Bleed, Gall Bladder Disease, Kidney Stones, Diverticulitis, Renal Disease, Urosepsis Neurological History Of: Denies: TIA, CVA, Dementia, Seizures, Migraine Psychological History Of: Reports: Anxiety, Depression - pasr episode was treated with medications but stopped about 3 years ago as Denies: Bipolar Disorder, Schizophrenia, Post Traumatic Stress Disorder Cancer History Of: Denies: Lung Cancer, Colorectal Cancer, Breast Cancer, Prostate Cancer, Cervical Cancer Other History Of: Negative For: HIV, Hepatitis B, Hepatitis C, Anticoagulant Therapy - Surgical History Surgical History: None Surgery Procedure, Year, and Place: ADOIDS OUT WHEN A KID - Family History Known Family History: Positive: Hypertension, Diabetes, Other - unspecified [place] Negative: Cardiac Disease - Social History Alcohol Use: Occasionally Substance Use Type: None Smoking Status (MU): Never Smoked Tobacco Review of Systems Constitutional: Negative Skin: Other - cysts on back Eyes: Negative ENT: Negative Respiratory: Negative Cardiovascular: Negative Gastrointestinal: Negative Genitourinary: Negative Motor: Negative Neurovascular: Negative Musculoskeletal: Negative Neurological: Negative Psychological: Anxious All Other Systems Reviewed And Are Negative: Yes Physical Exam Triage Information Reviewed: Yes Appearance: Well-Appearing, No Pain Distress, Well-Nourished, Other: - slioghtly anxious Vital Signs: Initial Vital Signs Temp 97.5 F 10/18/16 09:32 Pulse 102 10/18/16 09:32 Resp 20 10/18/16 09:32 BP 146/93 10/18/16 09:32 Pulse Ox 99 10/18/16 09:32 Vital Signs Reviewed: Yes Eyes: Positive: Conjunctiva Clear ENT: Positive: Pharynx normal, TMs normal. Negative: Nasal congestion Neck: Positive: No Lymphadenopathy Respiratory: Positive: Lungs clear, Normal breath sounds, No respiratory distress, No accessory muscle use Cardiovascular: Positive: RRR, No Murmur, Pulses Normal, Brisk Capillary Refill Abdomen Description: Positive: Nontender, No Organomegaly, Soft Bowel Sounds: Positive: Present Musculoskeletal: Positive: No Edema Neurological: Positive: Alert Psychological: Positive: Other: - slightly anxious and tearful Skin: Positive: Other - right side of back with 1x1cm area of scar tissue- no erythema induration -not warm to touch Course/Dx - Course Course Of Treatment: exam completed. patient is anxious but seems controlled- has good support system. no suicidal /homicidal ideation. willl followup with PCP - Differential Dx - Multi-Symptom Provider Diagnoses: anxiety. cyst Discharge - Discharge Plan Condition: Stable Disposition: HOME Patient Education Materials: Anxiety (ED) Referrals: Joy Lazo PA [Primary Care Provider] - Additional Instructions: Continue your regular medications as prescribed by Joy Lazo continue couseling review sleep hygiene handout and try to get more rest contact your primary care provider about having cyst removed by airplane rigger Please review your discharge instructions. If your symptoms do not improve please call your primary care provider or return to urgent care
== END 2016-10-18 10:23 | disposition home or self-care (01) ==
LOC: UCEAST 09:26
DX: F41.9 Anxiety disorder, unspecified (principal); L72.9 Follicular cyst of the skin and subcutaneous tissue, unspecified; Z88.6 Allergy status to analgesic agent; Z88.5 Allergy status to narcotic agent
CPT/HCPCS: 99211; G0463

== ENCOUNTER 2016-11-18 08:44 | Emergency (ER) | payer BC ==
[2016-11-18 09:06] VITALS: BP 128/76
--- NOTE | 2016-11-18 09:57 | UC ---
migue Bustos Timothy, scribed for Anand Hooks MD on 11/18/16 at 0913 . General HPI - HPI Summary HPI Summary: Consuelo Norwood is a 25 yo female presenting to [facility] with 3/10 left jaw pain and swelling since 11/17/16. She denies difficulty swallowing, sore throat, tooth ache, ear pain, or any other Sx. She states her neck is sore due to her anxiety. She states her roommate had the flu last week, and she has not had her flu shot. Her MHx includes sicatica, asthma, depression, and anxiety. - History of Current Complaint Stated Complaint: SWOLLEN LYMPH NODE Time Seen by Provider: 11/18/16 09:08 Hx Obtained From: Patient Onset/Duration: Sudden Onset, Lasting Days, Still Present Timing: Constant Onset Severity: Moderate Current Severity: Moderate Pain Intensity: 3 - /10 Pain Location at: left side of jaw Associated Signs & Symptoms: Positive: Other - left jaw pain and swelling - Allergy/Home Medications Allergies/Adverse Reactions: Allergies Allergy/AdvReac Type Severity Reaction Status Date / Time Acetaminophen [From Percocet] Allergy Shortness Verified 09/08/16 11:12 of Breath Oxycodone [From Percocet] Allergy Shortness Verified 09/08/16 11:12 of Breath PMH/Surg Hx/FS Hx/Imm Hx Endocrine History Of: Denies: Diabetes, Thyroid Disease, Hyperthyroidism, Hypothyroidism, Dyslipidemia Cardiovascular History Of: Denies: Cardiac Disorders, Hypertension, Pacemaker/ICD, Myocardial Infarction , Congestive Heart Failure, Atrial Fibrillation, Deep Vein Thrombosis, Bleeding Disorders Respiratory History Of: Reports: Asthma - She does not use an inhaler regularly. Denies: COPD, Bronchitis, Pneumonia, Pulmonary Embolism GI/ History Of: Denies: Gastroesophageal Reflux, Ulcer, Gastrointestinal Bleed, Gall Bladder Disease, Kidney Stones, Diverticulitis, Renal Disease, Urosepsis Neurological History Of: Denies: TIA, CVA, Dementia, Seizures, Migraine Psychological History Of: Reports: Anxiety, Depression - pasr episode was treated with medications but stopped about 3 years ago as Denies: Bipolar Disorder, Schizophrenia, Post Traumatic Stress Disorder Cancer History Of: Denies: Lung Cancer, Colorectal Cancer, Breast Cancer, Prostate Cancer, Cervical Cancer Other History Of: Negative For: HIV, Hepatitis B, Hepatitis C, Anticoagulant Therapy - Surgical History Surgical History: None Surgery Procedure, Year, and Place: ADOIDS OUT WHEN A KID - Family History Known Family History: Positive: Hypertension, Diabetes, Other - unspecified CA, thyroid disease Negative: Cardiac Disease - Social History Alcohol Use: Rare Substance Use Type: None Smoking Status (MU): Never Smoked Tobacco Review of Systems Constitutional: Negative Skin: Negative Eyes: Negative ENT: Other - left side jaw pain and swelling Respiratory: Negative Cardiovascular: Negative Gastrointestinal: Negative Genitourinary: Negative Motor: Negative Neurovascular: Negative Musculoskeletal: Negative Neurological: Negative Psychological: Negative All Other Systems Reviewed And Are Negative: Yes Physical Exam Triage Information Reviewed: Yes Vital Signs: Initial Vital Signs Temp 97.6 F 11/18/16 09:00 Pulse 98 11/18/16 09:00 Resp 18 11/18/16 09:00 BP 128/76 11/18/16 09:00 Pulse Ox 99 11/18/16 09:00 Vital Signs Reviewed: Yes - Additional Comments VITAL SIGNS: Reviewed. GENERAL: Patient is a well developed and nourished who is lying comfortable in the stretcher. Patient is not in any acute respiratory distress. HEAD AND FACE: Normocephalic. There is no nasal discharge. EYES: PERRLA, EOMI x 2. EARS: Hearing grossly intact. WNL MOUTH: Pharyngeal erythema without exudate. NECK: Supple, trachea is midline, no JVD, no carotid bruit. Parotid gland is not swollen or tender. There is some posterior neck lymphdenopathy. CHEST: Symmetric, no tenderness at palpation LUNGS: Clear to auscultation bilaterally. No wheezing or crackles. CVS: Regular rate and rhythm, S1 and S2 present, no murmurs or gallops appreciated. ABDOMEN: Soft, non-tender. Bowel sounds are normal. No abdominal abnormal pulsations. EXTREMITIES: FROM in all major joints, no edema, no cyanosis or clubbing. NEURO: Alert and oriented x 3. No acute neurological deficits. Speech is normal and follows commands. SKIN: Dry and warm Re-Evaluation - Re-Evaluation First Eval Re-Evaluation Time: 09:40 Change: Unchanged Comment: Discussed negative results of strep and rapid flu tests. Course/Dx - Course Course Of Treatment: Consuelo Norwood is a 25 yo female presenting to [facility] with 3/ 10 left jaw pain and swelling since 11/17/16. She denies difficulty swallowing, sore throat, tooth ache, ear pain, or any other Sx. She states her neck is sore due to her anxiety. She states her roommate had the flu last week, and she has not had her flu shot. Her MHx includes sciatica, asthma, depression, and anxiety. Rapid strep and influenza A and B tests were negative. I do not believe the Pt is dealing with parotitis or TMJ. I believe the Pt is dealing with viral lymphadenopathy. Pt was given instructions to return to [facility] or present to [facility] with increases in pain, increase in swelling, left side of the face and increase in neck pain, or fevers/chills. If these semptoms worsen we need to r/o Parotitis, however is low in my diffeenctioal since patient is up to date in her vaccinations and she has no sick contacts. Pt understands and agrees. She is hemodynamically stable and alert and oriented x3. - Differential Dx - Multi-Symptom Differential Diagnoses: Other - Flue, strep pharyngitis, Parotitis, Otitis media or externa, sinusitis, TMJ Provider Diagnoses: lymphadenopathy, viral illness Discharge - Discharge Plan Condition: Stable Disposition: HOME Patient Education Materials: Lymphadenopathy (ED), Viral Syndrome (ED) Referrals: Joy Lazo PA [Primary Care Provider] - 2 Days Additional Instructions: Please follow up with your primary care physician regarding your visit to urgent care today. Return to urgent care or the emergency department with any new or recurring symptoms. The documentation as recorded by the migue toro Timothy accurately reflects the service I personally performed and the decisions made by me, Anand Hooks MD.
== END 2016-11-18 09:53 | disposition home or self-care (01) ==
LOC: UCEAST 08:44
DX: B34.9 Viral infection, unspecified (principal); R59.1 Generalized enlarged lymph nodes; Z88.6 Allergy status to analgesic agent; Z88.5 Allergy status to narcotic agent
CPT/HCPCS: 87502; 87651; 99211; G0463

== ENCOUNTER 2017-07-20 11:05 | Emergency (ER) | payer BC ==
[2017-07-20 13:16] VITALS: BP 143/81
--- NOTE | 2017-07-25 21:18 | UC ---
Connie Bustos Gabriel, scribed for Mounika Plasencia MD on 07/20/17 at 1324 . Respiratory Complaint HPI - HPI Summary HPI Summary: This patient is a 26 year old F presenting to [facility] with a chief complaint of a productive cough with yellow sputum that began 8 days ago. Pt reports not sleeping well, sinus congestion, subjective fever, and body aches. Is taking cough drops, helps a little not much. No sob (except with cough), no hemoptysis. No rash. - History of Current Complaint Chief Complaint: UCRespiratory Stated Complaint: SORE THROAT, COUGH Time Seen by Provider: 07/20/17 13:19 Hx Obtained From: Patient Hx Last Menstrual Period: 07/07/2017 Onset/Duration: Lasting Weeks - 1, Still Present Timing: Constant Character: Cough: Productive, Sputum Description: - yellow Associated Signs And Symptoms: Positive: Wheezing, Nasal Congestion - Allergies/Home Medications Allergies/Adverse Reactions: Allergies Allergy/AdvReac Type Severity Reaction Status Date / Time Acetaminophen [From Percocet] Allergy Shortness Verified 09/08/16 11:12 of Breath Oxycodone [From Percocet] Allergy Shortness Verified 09/08/16 11:12 of Breath PMH/Surg Hx/FS Hx/Imm Hx Previously Healthy: No Respiratory History: Asthma Other History Of: Negative For: HIV, Hepatitis B, Hepatitis C, Anticoagulant Therapy - Surgical History Surgical History: None Surgery Procedure, Year, and Place: Adenoidremoval as child - Family History Known Family History: Positive: Hypertension, Diabetes, Other - unspecified CA, thyroid disease Negative: Cardiac Disease - Social History Alcohol Use: Rare Substance Use Type: None Smoking Status (MU): Never Smoked Tobacco - Immunization History Most Recent Influenza Vaccination: UTD Review of Systems Constitutional: Other - see hpi Skin: Negative ENT: Other - see hpi Respiratory: Other - see hpi Cardiovascular: Negative Gastrointestinal: Negative Genitourinary: Negative Motor: Negative Neurovascular: Negative Musculoskeletal: Negative Neurological: Negative Is Patient Immunocompromised?: No All Other Systems Reviewed And Are Negative: Yes Physical Exam Triage Information Reviewed: Yes Vital Signs: Initial Vital Signs Temp 99.4 F 07/20/17 11:10 Pulse 109 07/20/17 11:10 Resp 18 07/20/17 11:10 BP 125/69 07/20/17 11:10 Pulse Ox 100 07/20/17 11:10 Vital Signs Reviewed: Yes Eye Exam: Normal ENT Exam: Normal ENT: Positive: TM dull - left, Other - Uvula is swollen and erythematic but not blocking airway Neck exam: Normal Respiratory: Positive: Rhonchi, Wheezing Cardiovascular Exam: Normal Cardiovascular: Positive: RRR, No Murmur, Other: - good general skin color, good capillary refill Abdominal Exam: Normal Abdomen Description: Positive: Nontender, No Organomegaly, Soft Bowel Sounds: Positive: Present Musculoskeletal Exam: Normal Musculoskeletal: Positive: Strength Intact Neurological Exam: Normal - nonfocal, grossly intact Psychological Exam: Normal - conversing easily and appropriately Skin Exam: Normal - no visible or reported rash UC Diagnostic Evaluation - Laboratory O2 Sat by Pulse Oximetry: 100 Respiratory Course/Dx - Course Course Of Treatment: no new problems in CCC. Reviewed with pt the importance of follow up for resp check, and to seek medical attention for worse or new problems in the meantime. Questions as posed answered to the best of my ability. - Differential Dx/Diagnosis Provider Diagnoses: Bronchitis with wheezing Discharge - Discharge Plan Condition: Stable Disposition: HOME Prescriptions: Albuterol HFA INHALER* [Ventolin HFA Inhaler*] 1 - 2 puff INH Q4H PRN #1 mdi PRN Reason: Wheezing Azithromyxin KAMALJIT (NF) [Z-Kamaljit (Zithromax) 250 mg tabs #6] 2 tab PO .TODAY, THEN 1 DAILY #6 tab Ondansetron ODT TAB* [Zofran 4 MG Odt TAB*] 4 mg PO Q8H PRN #16 tab PRN Reason: Nausea Patient Education Materials: Acute Bronchitis (ED), Wheezing (ED) Referrals: Joy Lazo PA [Primary Care Provider] - Additional Instructions: Avoid celexa while taking azithromycin. Follow up with your primary care provider next week if possible. Seek medical attention for worse or new problems. The documentation as recorded by the Connie toro Gabriel accurately reflects the service I personally performed and the decisions made by me, Mounika Plasencia MD.
== END 2017-07-20 13:42 | disposition home or self-care (01) ==
LOC: UCEAST 11:05
DX: J40 Bronchitis, not specified as acute or chronic (principal); R06.2 Wheezing
CPT/HCPCS: 99212; G0463

== ENCOUNTER → 2017-12-13 10:37 | Emergency (ER) | payer BC ==
[~2017-12-13 10:37] MED LIST: Cyclobenzaprine TAB* 10 MG PO ONE; Ketorolac INJ* 60 MG/2 ML VIAL IM ONE
--- OUTSIDE RECORDS SUMMARY | 2017-12-13 11:06 | XMS REPORT ---
:1990 External Reference #:[id number] Author Organization [facility] 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 Joy Lazo RPAC Primary Care Physician Unavailable Payers Type Date Identification Numbers Payment Provider Subscriber Commercial Effective: Policy Number: Inactive-Add Ins 4 Tripp Cochran 2016 [id number] Expires: 2017 PayID: [id number] [address] [address] MAR[place] Maurer [phone] Medigap Part B Policy Number: [id number] Crow Cochran PayID: [id number] [address] [address] MAR[place] Maurer [phone] Problems Date Description Provider Status Onset: 08/07/2011 Single major depressive episode NIYAH Gustafson Active Note: 2010 Onset: 06/29/2017 Anxiety disorder NIYAH Gustafson Active Onset: 11/04/2016 Keloid scar NIYAH Gustafson Active Note: (R) ear Family History Date Family Member(s) Problem(s) Comments Father Anxiety Father Colon Polyps Mother Obesity First Sister Anxiety Paternal Grandfather Colon Cancer Paternal Grandfather Prostate Cancer Maternal Grandfather Lung Cancer Social History Type Date Description Comments Lives With Roommate several 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 @ [employer] 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 Provide leniency with timed breaks, disperse lifting thru out day Buspirone HCL 03/24 Active Tablets 15mg 60tab take one s tablet [facility] by mouth 2 times daily as needed for anxiety Escitalopram 11/04 Active Tablets 10mg 45tab 1 tab Ryder Oxalate s by vignesh Coffey M.D. every day Nystatin 10/16 Hx Suspension [id number] 120ml take B37.0 t/ML 10cc by [facility] mouth- swish and spit- four times a day No Active 10/13 Hx Unknown Medications /2016 - 10/13 Escitalopram 10/13 Hx Tablets 5mg 30tab 1 tab by Ryder Oxalate s mouth [facility] - every 11/04 Buspirone HCL 10/13 Hx Tablets 5mg 60tab 2 tabs s by mouth aCt [facility] - three 03/24 times day for anxiety as needed No Active 09/29 Hx Unknown Medications /2016 - 10/09 Oxycodone-Acetam 08/03 Hx Tablets 5-325mg 30tab 1 tab by Keshawn avila s mouth Albin DO - every 09/08 4- hours as needed sciatica Nabumetone 07/31 Hx Tablets 750mg 60tab take one M54.31 Keshawn Palafox s tablet Albin DO - by mouth 09/08 twice a day with food for pain No Active 01/30 Hx Unknown Medications /2014 - 01/30 Keflex 01/30 Hx Capsules 500mg 20cap one 682.2 Jenniferlei s capsules Clune, [employer] - by mouth 02/09 every hours x 10 days Ibuprofen 00 Hx Tablets 800mg OTC, M54.31 Unknown /0000 every 8 - hrs 07/31 Cyclobenzaprine Hx Tablets 10mg 1 by Unknown HCL /0000 mouth - three 09/29 times day as needed muscle spasms Augmentin 00 Hx Tablets 875-125mg one tab Unknown /0000 by mouth - every 12 with food Immunizations CPT Code Status Date Vaccine Reaction Lot # [id number] Given 06/29/2017 Influenza Virus Vaccine Quadrivalent Iiv4 [place] [id number] [id number] Given 06/06/2012 flu vaccination Vital Signs Date Vital Result Comment 11/16/2017 BP Systolic Sitting Right Arm 108 mmHg BP Diastolic Sitting Right Arm 62 mmHg Heart Rate 90 /min Height 69 inches 5'9" Weight 268.00 lb BMI (Body Mass Index) 39.6 kg/m2 BSA (Body Surface Area) 2.34 m2 [place] body weight in kilograms 66 O2 % BldC Oximetry 98 % ra 06/29/2017 BP Systolic Sitting Left Arm 120 mmHg BP Diastolic Sitting Left Arm 74 mmHg Heart Rate 78 /min Respiratory Rate 18 /min Height 69 inches 5'9" Weight 275.00 lb BMI (Body Mass Index) 40.6 kg/m2 BSA (Body Surface Area) 2.37 m2 [place] body weight in kilograms 66 03/24/2017 BP Systolic Sitting Right Arm 102 mmHg BP Diastolic Sitting Right Arm 70 mmHg Body Temperature 98.0 F Heart Rate 94 /min Respiratory Rate 18 /min Height 69 inches 5'9" Weight 262.00 lb BMI (Body Mass Index) 38.7 kg/m2 BSA (Body Surface Area) 2.32 m2 [place] body weight in kilograms 66 O2 % BldC Oximetry 94 % 02/17/2017 BP Systolic Sitting Right Arm 128 mmHg BP Diastolic Sitting Right Arm 72 mmHg Height 69 inches 5'9" Weight 257.44 lb BMI (Body Mass Index) 38.0 kg/m2 BSA (Body Surface Area) 2.30 m2 [place] body weight in kilograms 66 11/04/2016 BP Systolic Sitting Right Arm 128 mmHg BP Diastolic Sitting Right Arm 72 mmHg Height 69 inches 5'9" Weight 237.12 lb BMI (Body Mass Index) 35.0 kg/m2 BSA (Body Surface Area) 2.22 m2 10/16/2016 BP Systolic Sitting Right Arm 122 mmHg BP Diastolic Sitting Right Arm 72 mmHg Height 69 inches 5'9" Weight 242.12 lb BMI (Body Mass Index) 35.8 kg/m2 BSA (Body Surface Area) 2.24 m2 10/09/2016 BP Systolic Sitting Right Arm 122 mmHg BP Diastolic Sitting Right Arm 72 mmHg Body Temperature 98.8 F Height 69 inches 5'9" Weight 240.00 lb BMI (Body Mass Index) 35.4 kg/m2 BSA (Body Surface Area) 2.23 m2 [place] body weight in kilograms 66 09/29/2016 BP Systolic Sitting Right Arm 118 mmHg BP Diastolic Sitting Right Arm 72 mmHg 09/29/2016 Height 69 inches 5'9" Weight 247.00 lb BMI (Body Mass Index) 36.5 kg/m2 BSA (Body Surface Area) 2.26 m2 09/17/2016 BP Systolic Sitting Right Arm 126 mmHg BP Diastolic Sitting Right Arm 70 mmHg Height 69 inches 5'9" Weight 243.00 lb BMI (Body Mass Index) 35.9 kg/m2 BSA (Body Surface Area) 2.24 m2 Last Menstrual Period [id number] 07/31/2016 BP Systolic Sitting Right Arm 124 mmHg BP Diastolic Sitting Right Arm 84 mmHg Height 69 inches 5'9" Weight 256.19 lb BMI (Body Mass Index) 37.8 kg/m2 BSA (Body Surface Area) 2.30 m2 02/04/2015 BP Systolic Sitting Left Arm 118 mmHg BP Diastolic Sitting Left Arm 76 mmHg Body Temperature 98.3 F Height 69 inches 5'9" Weight 233.00 lb BMI (Body Mass Index) 34.4 kg/m2 BSA (Body Surface Area) 2.20 m2 01/30/2015 BP Systolic Sitting Left Arm 118 mmHg BP Diastolic Sitting Left Arm 74 mmHg Body Temperature 99.1 F Weight 231.00 lb Last Menstrual Period [id number] 09/17/2014 BP Systolic 126 mmHg BP Diastolic 70 mmHg Height 69 inches 5'9" Weight 244.00 lb 01/05/2013 BP Systolic 112 mmHg BP Diastolic 66 mmHg Body Temperature 98.1 F Height 69 inches 5'9" Weight 216.00 lb 12/05/2012 BP Systolic 124 mmHg BP Diastolic 70 mmHg Height 69 inches 5'9" Weight 216.00 lb 12/05/2012 BP Systolic 138 mmHg BP Diastolic 82 mmHg Height 69 inches 5'9" Weight 198.00 lb 06/06/2012 BP Systolic 104 mmHg BP Diastolic 66 mmHg Height 69 inches 5'9" Weight 209.00 lb 11/18/2011 BP Systolic 122 mmHg BP Diastolic 62 mmHg Weight 204.00 lb 08/07/2011 BP Systolic 118 mmHg BP Diastolic 70 mmHg Height 69 inches 5'9" Weight 205.00 lb 07/03/2011 BP Systolic 118 mmHg BP Diastolic 74 mmHg Height 69 inches 5'9" Weight 207.00 lb 06/12/2011 BP Systolic 102 mmHg BP Diastolic 84 mmHg Height 69 inches 5'9" Weight 207.00 lb 04/09/2011 BP Systolic 130 mmHg BP Diastolic 82 mmHg Body Temperature 98.9 F Height 69 inches 5'9" Weight 215.00 lb Results Test Date Test Result H/L Range Note Urinalysis Profile 10/12/2016 Urine Color Straw Urine Appearance Clear Urine Specific [place] 1.004 Low 1.010-1.030 Urine pH 6.0 5-9 Urine Urobilinogen Negative Negative Urine Ketones 1+ Negative Urine Protein Negative Negative Urine Leukocytes Negative Negative Urine Blood 1+ Negative Urine Nitrite Negative Negative Urine Bilirubin Negative Negative Urine Glucose Negative Negative Urine White Blood Cell Absent Absent Urine Red Blood Cell Trace(0-2/hpf) Absent Urine Bacteria Absent Absent Urine Squamous Epithelial Cell Present Absent Laboratory test finding 10/12/2016 Lipase 24 U/L 11.0-82.0 CBC Auto Diff 10/12/2016 White Blood Count 10.8 10^3/uL 3.5-10.8 Red Blood Count 4.65 10^6/uL 4.0-5.4 Hemoglobin 13.3 g/dL 12.0-16.0 Hematocrit 40 % 35-47 Mean Corpuscular Volume 85 fL 80-97 Mean Corpuscular Hemoglobin 29 pg 27-31 Mean Corpuscular HGB Conc 34 g/dL 31-36 Red Cell Distribution Width 13 % 10.5-15 Platelet Count 261 10^3/uL 150-450 Mean Platelet Volume 10 um3 7.4-10.4 Abs Neutrophils 7.9 10^3/uL High 1.5-7.7 Abs Lymphocytes 1.6 10^3/uL 1.0-4.8 Abs Monocytes 0.7 10^3/uL 0-0.8 Abs Eosinophils 0.1 10^3/uL 0-0.6 Abs Basophils 0.5 10^3/uL High 0-0.2 Abs Nucleated RBC 0.01 10^3/uL Granulocyte % 72.7 % 38-83 Lymphocyte % 15.1 % Low 25-47 Monocyte % 6.5 % 1-9 Eosinophil % 1.1 % 0-6 Basophil % 4.6 % High 0-2 Nucleated Red Blood Cells % 0.1 Comp Metabolic Panel 10/12/2016 Sodium 135 mmol/L 133-145 Potassium 3.3 mmol/L Low 3.5-5.0 Chloride 103 mmol/L 101-111 Co2 Carbon Dioxide 24 mmol/L 22-32 Anion Gap 8 mmol/L 2-11 Glucose 91 mg/dL 70-100 Blood Urea Nitrogen 5 mg/dL Low 6-24 Creatinine 0.71 mg/dL 0.51-0.95 BUN/Creatinine Ratio 7.0 Low 8-20 Calcium 9.3 mg/dL 8.6-10.3 Total Protein 7.0 g/dL 6.4-8.9 Albumin 4.3 g/dL 3.2-5.2 Globulin 2.7 g/dL 2-4 Albumin/Globulin Ratio 1.6 1-3 Total Bilirubin 0.90 mg/dL 0.2-1.0 Alkaline Phosphatase 53 U/L 34-104 Alt 11 U/L 7-52 Ast 13 U/L 13-39 Egfr Non- 98.7 >60 Egfr 127.0 >60 1 Laboratory test finding 10/12/2016 Lactic Acid 0.9 mmol/L 0.5-2.0 2 Laboratory test finding 09/08/2016 Lactic Acid 0.8 mmol/L 0.5-2.0 3 Urinalysis Profile 09/08/2016 Urine Color Straw Urine Appearance Clear Urine Specific [place] 1.006 Low 1.010-1.030 Urine pH 8.0 5-9 Urine Urobilinogen Negative Negative Urine Ketones Trace Negative Urine Protein Negative Negative Urine Leukocytes Negative Negative Urine Blood Negative Negative Urine Nitrite Negative Negative Urine Bilirubin Negative Negative Urine Glucose Negative Negative CBC Auto Diff 09/08/2016 White Blood Count 9.2 10^3/uL 3.5-10.8 Red Blood Count 4.85 10^6/uL 4.0-5.4 Hemoglobin 14.0 g/dL 12.0-16.0 Hematocrit 42 % 35-47 Mean Corpuscular Volume 86 fL 80-97 Mean Corpuscular Hemoglobin 29 pg 27-31 Mean Corpuscular HGB Conc 34 g/dL 31-36 Red Cell Distribution Width 13 % 10.5-15 Platelet Count 268 10^3/uL 150-450 Mean Platelet Volume 10 um3 7.4-10.4 Abs Neutrophils 6.5 10^3/uL 1.5-7.7 Abs Lymphocytes 2.0 10^3/uL 1.0-4.8 Abs Monocytes 0.5 10^3/uL 0-0.8 Abs Eosinophils 0.1 10^3/uL 0-0.6 Abs Basophils 0.1 10^3/uL 0-0.2 Abs Nucleated RBC 0 10^3/uL Granulocyte % 70.2 % 38-83 Lymphocyte % 22.0 % Low 25-47 Monocyte % 5.9 % 1-9 Eosinophil % 1.2 % 0-6 Basophil % 0.7 % 0-2 Nucleated Red Blood Cells % 0 Laboratory test finding 09/08/2016 HCG < 0.60 mIU/mL 4 Comp Metabolic Panel 09/08/2016 Sodium 138 mmol/L 133-145 Potassium 3.7 mmol/L 3.5-5.0 Chloride 106 mmol/L 101-111 Co2 Carbon Dioxide 24 mmol/L 22-32 Anion Gap 8 mmol/L 2-11 Glucose 96 mg/dL 70-100 Blood Urea Nitrogen 6 mg/dL 6-24 Creatinine 0.73 mg/dL 0.51-0.95 BUN/Creatinine Ratio 8.2 8-20 Calcium 9.6 mg/dL 8.6-10.3 Total Protein 7.4 g/dL 6.4-8.9 Albumin 4.5 g/dL 3.2-5.2 Globulin 2.9 g/dL 2-4 Albumin/Globulin Ratio 1.6 1-3 Total Bilirubin 0.50 mg/dL 0.2-1.0 Alkaline Phosphatase 60 U/L 34-104 Alt 9 U/L 7-52 Ast 13 U/L 13-39 Egfr Non- 95.6 >60 Egfr 123.0 >60 5 Laboratory test finding 09/08/2016 Magnesium 2.3 mg/dL 1.9-2.7 Amylase 36 U/L 29-103 Lipase 26 U/L 11.0-82.0 C Reactive Protein 1.27 mg/L < 5.00 6 Laboratory test finding 09/05/2016 Lactic Acid 1.0 mmol/L 0.5-2.0 7 Comp Metabolic Panel 09/05/2016 Sodium 131 mmol/L Low 133-145 Potassium 3.3 mmol/L Low 3.5-5.0 Chloride 112 mmol/L High 101-111 Co2 Carbon Dioxide 23 mmol/L 22-32 Anion Gap -4 mmol/L Low 2-11 Glucose 101 mg/dL High 70-100 Blood Urea Nitrogen 7 mg/dL 6-24 Creatinine 0.78 mg/dL 0.51-0.95 BUN/Creatinine Ratio 9.0 8-20 Calcium 9.4 mg/dL 8.6-10.3 Total Protein 7.6 g/dL 6.4-8.9 Albumin 4.6 g/dL 3.2-5.2 Globulin 3.0 g/dL 2-4 Albumin/Globulin Ratio 1.5 1-3 Total Bilirubin 0.50 mg/dL 0.2-1.0 Alkaline Phosphatase 57 U/L 34-104 Alt 9 U/L 7-52 Ast 13 U/L 13-39 Egfr Non- 88.6 >60 Egfr 113.9 >60 8 Laboratory test finding 09/05/2016 Magnesium 2.1 mg/dL 1.9-2.7 Lipase 24 U/L 11.0-82.0 C Reactive Protein 1.46 mg/L < 5.00 9 CBC Auto Diff 09/05/2016 White Blood Count 10.5 10^3/uL 3.5-10.8 Red Blood Count 4.85 10^6/uL 4.0-5.4 Hemoglobin 14.0 g/dL 12.0-16.0 Hematocrit 42 % 35-47 Mean Corpuscular Volume 86 fL 80-97 Mean Corpuscular Hemoglobin 29 pg 27-31 Mean Corpuscular HGB Conc 34 g/dL 31-36 Red Cell Distribution Width 13 % 10.5-15 Platelet Count 285 10^3/uL 150-450 Mean Platelet Volume 9 um3 7.4-10.4 Abs Neutrophils 7.2 10^3/uL 1.5-7.7 Abs Lymphocytes 2.5 10^3/uL 1.0-4.8 Abs Monocytes 0.6 10^3/uL 0-0.8 Abs Eosinophils 0.1 10^3/uL 0-0.6 Abs Basophils 0.1 10^3/uL 0-0.2 Abs Nucleated RBC 0 10^3/uL Granulocyte % 69.0 % 38-83 Lymphocyte % 23.8 % Low 25-47 Monocyte % 5.6 % 1-9 Eosinophil % 1.0 % 0-6 Basophil % 0.6 % 0-2 Nucleated Red Blood Cells % 0 Urinalysis Profile 09/05/2016 Urine Color Yellow Urine Appearance Clear Urine Specific [place] 1.011 1.010-1.030 Urine pH 5.0 5-9 Urine Urobilinogen Negative Negative Urine Ketones 1+ Negative Urine Protein Negative Negative Urine Leukocytes Negative Negative Urine Blood 1+ Negative Urine Nitrite Negative Negative Urine Bilirubin Negative Negative Urine Glucose Negative Negative Urine White Blood Cell Trace(0-5/hpf) Absent Urine Red Blood Cell Trace(0-2/hpf) Absent Urine Bacteria 1+ Absent Urine Squamous Epithelial Cell Present Absent Laboratory test finding 09/05/2016 Urine Culture SEE RESULT BELOW 10 Routine Culture W/ Gram Stain 01/30/2015 Gram Stain See Note 11 Aerobic Culture See Note 12 1 Because ethnic data is not always readily available, this report includes an eGFR for both -Americans and non- Americans. The National Kidney Disease Education Program (NKDEP) does not endorse the use of the MDRD equation for patients that are not between the ages of 18 and 70, are , have extremes of body size, muscle mass, or nutritional status, or are non- or non-. According to the National Kidney Foundation, irrespective of diagnosis, the stage of the disease is based on the level of kidney function: Stage Description GFR(mL/min/1.73 m(2)) 1 Kidney damage with normal or decreased GFR 90 2 Kidney damage with mild decrease in GFR 60-89 3 Moderate decrease in GFR 30-59 4 Severe decrease in GFR 15-29 5 Kidney failure <15 (or dialysis) 2 [facility] Severe Sepsis and Septic Shock Management Bundle Measure requires all lactic acids initially measuring >2.0 mmol/L be repeated. 3 [facility] Severe Sepsis and Septic Shock Management Bundle Measure requires all lactic acids initially measuring >2.0 mmol/L be repeated. 4 <5.0 Negative 5.0 - 25.0 Indeterminate (Repeat testing recommended after 72 hours) >25.0 Positive Perimenopausal women can display HCG levels of up to 20 mIU/mL 5 Because ethnic data is not always readily available, this report includes an eGFR for both -Americans and non- Americans. The National Kidney Disease Education Program (NKDEP) does not endorse the use of the MDRD equation for patients that are not between the ages of 18 and 70, are , have extremes of body size, muscle mass, or nutritional status, or are non- or non-. According to the National Kidney Foundation, irrespective of diagnosis, the stage of the disease is based on the level of kidney function: Stage Description GFR(mL/min/1.73 m(2)) 1 Kidney damage with normal or decreased GFR 90 2 Kidney damage with mild decrease in GFR 60-89 3 Moderate decrease in GFR 30-59 4 Severe decrease in GFR 15-29 5 Kidney failure <15 (or dialysis) 6 Acute inflammation: >10.00 7 [facility] Severe Sepsis and Septic Shock Management Bundle Measure requires all lactic acids initially measuring >2.0 mmol/L be repeated. 8 Because ethnic data is not always readily available, this report includes an eGFR for both -Americans and non- Americans. The National Kidney Disease Education Program (NKDEP) does not endorse the use of the MDRD equation for patients that are not between the ages of 18 and 70, are , have extremes of body size, muscle mass, or nutritional status, or are non- or non-. According to the National Kidney Foundation, irrespective of diagnosis, the stage of the disease is based on the level of kidney function: Stage Description GFR(mL/min/1.73 m(2)) 1 Kidney damage with normal or decreased GFR 90 2 Kidney damage with mild decrease in GFR 60-89 3 Moderate decrease in GFR 30-59 4 Severe decrease in GFR 15-29 5 Kidney failure <15 (or dialysis) 9 Acute inflammation: >10.00 10 SEE RESULT BELOW Name: TRIPP COCHRAN : [address]: Oscar Spann MD Acct: [id number] Unit: [id number] AGE: 25 Location: ED Re09/05/16 SEX: F Status: DEP ER SPEC: [id number] BROCK: 09/05/[address]: Oscar Spann MD REQ: [id number] RECD: 09/05/16 STATUS: COMP CAITLIN DR: Joy SHEEHAN _ SOURCE: URINE SPDESC: ORDERED: Urine Culture Procedure Result Reported Site Urine Culture Final 09/06/16- 1606 ML No growth of clinically significant organisms * ML - MAIN LAB ([facility]) . END OF REPORT * ML=Testing performed at Main Lab DEPARTMENT OF PATHOLOGY, [address] [place] [address] Raul Kaur M.D. Director [facility] # [id number] 11 GRAM STAIN ! FEW WHITE BLOOD CELLS ! RARE GRAM POSITIVE COCCI ! RARE EPITHELIAL CELLS ! 12 Organism 1 ! MIXED SKIN MAREK Quantity ! FEW Procedures Description No Information Encounters Type Date Location Provider CPT E/M Dx Office Visit 06/29/2017 11:30a Primary Care Office Joy Lazo, [address] F41.9 [facility] Z23 Office Visit 03/24/2017 10:15a Primary Care Office Joy Lazo, [facility] [address] F41.9 N60.11 Office Visit 02/17/2017 11:15a Primary Care Office Joy Lazo, [facility] [address] F41.9 Office Visit 11/04/2016 10:45a Primary Care Office Joy Lazo, [facility] [address] F41.9 Office Visit 10/16/2016 10:45a Primary Care Office Joy Lazo, [facility] [address] F41.9 B37.0 R19.7 Office Visit 10/09/2016 10:45a Primary Care Office Joy Lazo, [address] H65.01 RPA M54.2 F41.9 Office Visit 09/29/2016 1:30p Primary Care Office Joy aLzo, [address]327 M54.31 RPAC F41.9 Office Visit 09/17/2016 9:00a Primary Care Office Joy Lazo, [address] Z00.01 RPA Z12.72 H61.21 Office Visit 09/07/2016 2:30p Primary Care Office Joy Lazo, [facility] [address]172 F41.9 A09 M54.31 Office Visit 07/31/2016 11:15a Primary Care Office Joy Lazo, [address] M54.31 RPAC M54.5 Office Visit 02/04/2015 1:00p Family Medicine Peyton Cuadraune, [employer] [address] 682.2 706.2 Office Visit 01/30/2015 2:00p Family Medicine PENG Holcomb [address]71 706.2 682.2 Plan of Care Future Appointment(s):03/22/2018 2:00 pm - NIYAH Gustafson at Primary Care [id number]/16/2017 - Joy Lazo RPA34.1 Dysthymic disorderComments: Current tx: Escitalopram 10mg daily, Buspirone 15mg 1/2 tab po q 4 hrs prnMay try to increase Escitalopram to 5mg in AM and 10mg in PM Encouraged patient [facility], agreesFollow up:4 monthsAllNew Medication:Work Note
--- NOTE | 2017-12-13 12:24 | ED ---
Back Pain - HPI Summary HPI Summary: Patient here with bilateral lower back pain since Wednesday. She reports she had nausea vomiting and diarrhea and in the active vomiting, "threw her back out" on Wednesday. She's been managing this with Aleve and rehydrating with coconut water however today sneeze and had return of acute low back pain. She denies radiating pain as well as numbness, tingling, weakness, change in bowel or bladder habits. She is able to ambulate without difficulty. She feels best lying flat on back with hips and knees bent - feels worse sitting up straight. She has a history of lumbar strain and spasm as well as herniated disks. She was evaluated by PCP for these diagnoses and has had no complications other than the fact that she occasionally throws her back out. 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 Last Aleve was at 23:00 yesterday. - History of Current Complaint Chief Complaint: EDBackInjuryPain Stated Complaint: BACK PAIN Time Seen by Provider: 12/13/17 11:36 Hx Obtained From: Patient Hx Last Menstrual Period: 07/07/2017 Pain Intensity: 9 - Allergies/Home Medications Allergies/Adverse Reactions: Allergies Allergy/AdvReac Type Severity Reaction Status Date / Time MS Acetaminophen Allergy Shortness Verified 09/08/16 11:12 [From Percocet] of Breath MS Oxycodone [From Percocet] Allergy Shortness Verified 09/08/16 11:12 of Breath PMH/Surg Hx/FS Hx/Imm Hx Previously Healthy: Yes Endocrine/Hematology History: Denies: Hx Anticoagulant Therapy, Hx Diabetes, Hx Thyroid Disease Cardiovascular History: Denies: Hx Congestive Heart Failure, Hx Deep Vein Thrombosis, Hx Hypertension , Hx Myocardial Infarction, Hx Pacemaker/ICD Respiratory History: Reports: Hx Asthma - She does not use an inhaler regularly. Denies: Hx Chronic Obstructive Pulmonary Disease (COPD), Hx Lung Cancer, Hx Pneumonia, Hx Pulmonary Embolism GI History: Denies: Hx Gall Bladder Disease, Hx Gastrointestinal Bleed, Hx Ulcer, Hx Urosepsis History: Denies: Hx Kidney Stones, Hx Renal Disease Musculoskeletal History: Reports: Hx Back Problems - lumbar strain, h/o herniated discs Neurological History: Reports: Other Neuro Impairments/Disorders - Hx of sciatica Denies: Hx Dementia, Hx Migraine, Hx Seizures, Hx Transient Ischemic Attacks (TIA) Psychiatric History: Reports: Hx Anxiety, Hx Depression - pasr episode was treated with medications but stopped about 3 years ago as Denies: Hx Schizophrenia, Hx Bipolar Disorder - Surgical History Surgery Procedure, Year, and Place: Adenoidremoval as child - Immunization History Date of Tetanus Vaccine: unk Date of Influenza Vaccine: none Infectious Disease History: No Infectious Disease History: Denies: Hx Hepatitis, Hx Human Immunodeficiency Virus (HIV), History Other Infectious Disease, Traveled Outside the [place] in Last 30 Days - Family History Known Family History: Positive: Hypertension, Diabetes, Other - unspecified CA, thyroid disease Negative: Cardiac Disease - Social History Occupation: Employed Full-time Lives: Dormitory/Roommates Alcohol Use: Rare Hx Substance Use: No Substance Use Type: Reports: None Hx Tobacco Use: No Smoking Status (MU): Never Smoked Tobacco Review of Systems Constitutional: Negative Cardiovascular: Negative Respiratory: Negative Gastrointestinal: Negative Genitourinary: Negative Positive: Arthralgia, Myalgia Skin: Negative Neurological: Negative Positive: Anxious All Other Systems Reviewed And Are Negative: Yes Physical Exam Triage Information Reviewed: Yes Vital Signs On Initial Exam: Initial Vitals Temp Pulse Resp BP Pulse Ox 97.8 F 110 16 130/92 100 12/13/17 10:47 12/13/17 10:47 12/13/17 10:47 12/13/17 10:47 12/13/17 10:47 Vital Signs Reviewed: Yes Appearance: Positive: Well-Appearing, Pain Distress, Obese Skin: Positive: Warm, Skin Color Reflects Adequate Perfusion, Dry Head/Face: Positive: Normal Head/Face Inspection ENT: Positive: Hearing grossly normal, Pharynx normal - mucosa moist Respiratory/Lung Sounds: Positive: Breath Sounds Present Cardiovascular: Positive: Pulses are Symmetrical in both Upper and Lower Extremities Abdomen Description: Positive: Nontender, Soft Musculoskeletal: Positive: Strength/ROM Intact, Pain @ - Lumbar muscles TTP - pain w/ transitoins from lying to sitting - ambulates well but slowly to gaurd core Neurological: Positive: Normal, Sensory/Motor Intact, Alert, Oriented to Person Place, Time, CN Intact II-III, Other - no saddle paresthesia Psychiatric: Positive: Anxious - tearful Diagnostics - Vital Signs Vital Signs Temp Pulse Resp BP Pulse Ox 12/13/17 10:47 97.8 F 110 16 130/92 100 - Laboratory Lab Statement: Any lab studies that have been ordered have been reviewed, and results considered in the medical decision making process. Back Pain Course/Dx - Diagnoses Provider Diagnoses: Lumbar strain, Lumbar paraspinal muscle spasm Discharge - Sign-Out/Discharge Documenting (check all that apply): Discharge - Discharge Plan Condition: Stable Disposition: HOME Prescriptions: Cyclobenzaprine TAB* [Flexeril 10 MG TAB*] 10 mg PO TID PRN #15 tab PRN Reason: Pain Patient Education Materials: Low Back Strain (ED), Muscle Spasm (ED) Forms: *Work Release Referrals: Joy Lazo PA [Primary Care Provider] - Additional Instructions: Rest, ice alternating with heat, gentle stretches accompanied by isometric abdominal exercises, topical analgesic such as Biofreeze/BenGay/salon positive patches/etc. You may also take Aleve 500 mg every 12 hours with food OR ibuprofen 800 mg every 8 hours with food. You may alternate one of these medications with acetaminophen 650 mg every 6 hours as needed for pain. Additionally a muscle relaxer has been sent to your pharmacy - use as directed. Follow up with her PCP later this week - call today to schedule an appointment. If more time off work is required, your PCP will help you navigate your further care. *If you developed numbness, tingling, weakness, change in bowel or bladder habits, return to the emergency department - Billing Disposition and Condition Condition: STABLE Disposition: HOME
[2017-12-13 12:39] VITALS: BP 118/77
== END | disposition home or self-care (01) ==
LOC: ED 10:37
DX: S39.012A Strain of muscle, fascia and tendon of lower back, initial encounter (principal); M54.5 Low back pain; M62.830 Muscle spasm of back; X58.XXXA Exposure to other specified factors, initial encounter; Y92.9 Unspecified place or not applicable
CPT/HCPCS: 96372; 99281; A9270-GY; J1885

== ENCOUNTER 2018-07-04 09:39 | Emergency (ER) | payer BC ==
[2018-07-04 09:52] VITALS: BP 122/82
--- NOTE | 2018-07-04 09:59 | UC ---
Respiratory Complaint HPI - HPI Summary HPI Summary: 27 yo female presents with cough. She tells me that 2 days ago she developed a dry cough that has gotten worse and "deeper" since that time. She is concerned because she had chronic bronchitis as a child and a few months ago had bronchitis that required "multiple medications" to control. She has an albuterol inhaler, but has not been using this as it is . She has not been taking anything OTC. She denies fever, chills, sore throat, SOB, chest pain. - History of Current Complaint Chief Complaint: UCRespiratory Stated Complaint: COUGH Time Seen by Provider: 07/04/18 09:59 Hx Obtained From: Patient Hx Last Menstrual Period: 06/30/18 Onset/Duration: Sudden Onset Severity Initially: Mild Severity Currently: Mild Pain Intensity: 2 Pain Scale Used: 0-10 Numeric Character: Cough: Nonproductive - Allergies/Home Medications Allergies/Adverse Reactions: Allergies Allergy/AdvReac Type Severity Reaction Status Date / Time acetaminophen [From Percocet] Allergy Difficulty Verified 07/04/18 09:53 Breathing oxycodone [From Percocet] Allergy Difficulty Verified 07/04/18 09:53 Breathing PMH/Surg Hx/FS Hx/Imm Hx Respiratory History: Asthma Psychological History: Anxiety Other History Of: Negative For: HIV, Hepatitis B, Hepatitis C, Anticoagulant Therapy - Surgical History Surgical History: Yes Surgery Procedure, Year, and Place: Adenoidremoval as child - Family History Known Family History: Positive: Hypertension, Diabetes, Other - unspecified CA, thyroid disease Negative: Cardiac Disease - Social History Occupation: Employed Full-time Lives: With Family Alcohol Use: Rare Substance Use Type: None Smoking Status (MU): Never Smoked Tobacco - Immunization History Most Recent Influenza Vaccination: UTD Review of Systems Constitutional: Negative Skin: Negative Eyes: Negative ENT: Negative Respiratory: Cough Cardiovascular: Negative Gastrointestinal: Negative Genitourinary: Negative Neurovascular: Negative Neurological: Negative Psychological: Negative All Other Systems Reviewed And Are Negative: Yes Physical Exam - Summary Physical Exam Summary: GENERAL: NAD. WDWN. No pain distress. SKIN: No rashes, sores, lesions, or open wounds. HEENT: Head: AT/NC Eyes: Conjunctiva clear without inflammation or discharge. Ears: Hearing grossly normal. TMs intact, no bulging, erythema, or edema. Nose: Nasal mucosa pink and moist. NTTP maxillary and frontal sinus. Throat: Posterior oropharynx without exudates or erythema. Uvula midline. NECK: Supple. Nontender. No lymphadenopathy. CHEST: Mild wheezing throughout. No r/r. No accessory muscle use. Breathing comfortably and in no distress. CV: RRR. Without m/r/g. Pulses intact. Cap refill <2seconds NEURO: Alert. PSYCH: Age appropriate behavior. Triage Information Reviewed: Yes Vital Signs: Initial Vital Signs Temp 98 F 07/04/18 09:50 Pulse 100 07/04/18 09:50 Resp 20 07/04/18 09:50 BP 122/82 07/04/18 09:50 Pulse Ox 100 07/04/18 09:50 Vital Signs Reviewed: Yes UC Diagnostic Evaluation - Laboratory O2 Sat by Pulse Oximetry: 100 Respiratory Course/Dx - Course Course Of Treatment: Duoneb nebulizer given and pt reported feeling easier work of breathing and decreased wheezing s/p. Suspect bronchitis vs asthma exacerbation - will treat with tessalon and steroids. Also, will rx for a new albuterol inhaler as hers is . - Differential Dx/Diagnosis Provider Diagnoses: Bronchitis Discharge - Sign-Out/Discharge Documenting (check all that apply): Patient Departure All imaging exams completed and their final reports reviewed: No Studies - Discharge Plan Condition: Stable Disposition: HOME Prescriptions: Albuterol HFA INHALER* [Ventolin HFA Inhaler*] 1 - 2 puff INH Q6H PRN #1 mdi PRN Reason: Sob/Wheezing Benzonatate CAP* [Tessalon 100 MG CAP*] 100 mg PO TID PRN #15 cap PRN Reason: Cough predniSONE TAB* [Deltasone 20 MG TAB*] 40 mg PO DAILY #13 tab Patient Education Materials: Acute Bronchitis (ED) Referrals: Joy Lazo PA [Primary Care Provider] - Additional Instructions: If you develop a fever, shortness of breath, chest pain, new or worsening symptoms - please call your PCP or go to the ED. - Billing Disposition and Condition Condition: STABLE Disposition: Home
[2018-07-04] MEDS ORDERED: Albuterol/Ipratropium NEB.SOL* Albuterol 2.5 MG/Ipratropium 0.5 MG 3 ML INH ONE (10:05)
== END 2018-07-04 10:47 | disposition home or self-care (01) ==
LOC: UCEAST 09:39
DX: J40 Bronchitis, not specified as acute or chronic (principal); Z88.6 Allergy status to analgesic agent; Z88.5 Allergy status to narcotic agent
CPT/HCPCS: 99212; A9270-GY; G0463

== ENCOUNTER 2018-07-09 12:02 | Emergency (ER) | payer BC ==
[2018-07-09 12:15] VITALS: BP 125/77
--- NOTE | 2018-07-09 12:38 | UC ---
Respiratory Complaint HPI - HPI Summary HPI Summary: worsening cough chest tightness for the past 7 days not much relief with albuterol and prednisone---on occasion she is coughing so hard she feels like she may have emesis - History of Current Complaint Chief Complaint: UCRespiratory Stated Complaint: RECHECK OF CHEST CONGESTION Time Seen by Provider: 07/09/18 12:29 Hx Obtained From: Patient Hx Last Menstrual Period: 2 wks ago ?: No Onset/Duration: Sudden Onset, Lasting Weeks - 1, Still Present, Worse Since - daily Timing: Constant Severity Initially: Moderate Severity Currently: Moderate Pain Intensity: 3 Pain Scale Used: 0-10 Numeric Character: Cough: Productive, Sputum Description: - thick green and yellow Aggravating Factors: Deep Breaths, Recumbent Position Alleviating Factors: Bronchodilator Associated Signs And Symptoms: Positive: Dyspnea, Pleuritic Chest Pain, Wheezing - Allergies/Home Medications Allergies/Adverse Reactions: Allergies Allergy/AdvReac Type Severity Reaction Status Date / Time acetaminophen [From Percocet] Allergy Difficulty Verified 07/09/18 12:16 Breathing oxycodone [From Percocet] Allergy Difficulty Verified 07/09/18 12:16 Breathing PMH/Surg Hx/FS Hx/Imm Hx Previously Healthy: No Respiratory History: Asthma Other History Of: Negative For: HIV, Hepatitis B, Hepatitis C, Anticoagulant Therapy - Surgical History Surgical History: Yes Surgery Procedure, Year, and Place: Adenoids - Family History Known Family History: Positive: Hypertension, Diabetes, Other - unspecified CA, thyroid disease Negative: Cardiac Disease - Social History Occupation: Employed Full-time Lives: With Family Alcohol Use: Rare Substance Use Type: None Smoking Status (MU): Never Smoked Tobacco - Immunization History Most Recent Influenza Vaccination: UTD Review of Systems All Other Systems Reviewed And Are Negative: Yes Constitutional: Positive: Negative Skin: Positive: Negative Eyes: Positive: Negative ENT: Positive: Negative Respiratory: Positive: Cough Cardiovascular: Positive: Negative Gastrointestinal: Positive: Negative Genitourinary: Positive: Negative Motor: Positive: Negative Neurovascular: Positive: Negative Musculoskeletal: Positive: Negative Neurological: Positive: Negative Psychological: Positive: Negative Is Patient Immunocompromised?: No Physical Exam Triage Information Reviewed: Yes Appearance: Well-Appearing, No Pain Distress, Well-Nourished Vital Signs: Initial Vital Signs Temp 98.1 F 07/09/18 12:13 Pulse 101 07/09/18 12:13 Resp 18 07/09/18 12:13 BP 125/77 07/09/18 12:13 Pulse Ox 100 07/09/18 12:13 Vital Signs Reviewed: Yes Eye Exam: Normal Eyes: Positive: Conjunctiva Clear ENT Exam: Normal ENT: Positive: Normal ENT inspection, Hearing grossly normal, Pharynx normal, TMs normal, Uvula midline. Negative: Nasal congestion, Trismus, Muffled voice, Hoarse voice, Dental tenderness, Sinus tenderness Dental Exam: Normal Neck exam: Normal Neck: Positive: Supple, Nontender, No Lymphadenopathy Respiratory Exam: Normal Respiratory: Positive: Chest non-tender, Lungs clear, Normal breath sounds, No respiratory distress, No accessory muscle use Cardiovascular Exam: Other Cardiovascular: Positive: No Murmur, Pulses Normal, Brisk Capillary Refill, Tachycardia Musculoskeletal Exam: Normal Musculoskeletal: Positive: Strength Intact, ROM Intact, No Edema Neurological Exam: Normal Neurological: Positive: Alert, Muscle Tone Normal Psychological Exam: Normal Skin Exam: Normal UC Diagnostic Evaluation - Laboratory O2 Sat by Pulse Oximetry: 100 Respiratory Course/Dx - Course Course Of Treatment: dispense aerochamber, add zithromax, continue with MDI, finish prednisone follow with pcp prn - Differential Dx/Diagnosis Provider Diagnoses: acute bronchitis acute exacebation of asthma Discharge - Sign-Out/Discharge Documenting (check all that apply): Patient Departure All imaging exams completed and their final reports reviewed: No Studies - Discharge Plan Condition: Stable Disposition: HOME Prescriptions: Albuterol HFA INHALER* [Ventolin HFA Inhaler*] 1 - 2 puff INH Q4H PRN #1 mdi PRN Reason: cough/chest tightness Azithromycin TAB* [Zithromax TAB (Z-RADHA) 250 mg #6 tabs] 2 tab PO .TODAY, THEN 1 DAILY #1 radha Patient Education Materials: Acute Bronchitis (ED) Referrals: Joy Lazo PA [Primary Care Provider] - If Needed - Billing Disposition and Condition Condition: STABLE Disposition: Home
== END 2018-07-09 12:50 | disposition home or self-care (01) ==
LOC: UCEAST 12:02
DX: J45.901 Unspecified asthma with (acute) exacerbation (principal); J20.9 Acute bronchitis, unspecified; Z88.6 Allergy status to analgesic agent; Z88.5 Allergy status to narcotic agent
CPT/HCPCS: 99212; G0463

== ENCOUNTER 2018-08-01 12:21 | Emergency (ER) | payer BC ==
[2018-08-01 13:08] VITALS: BP 122/75
--- NOTE | 2018-08-01 14:07 | UC ---
Back Pain HPI - HPI Summary HPI Summary: 27 y/o female presents to the urgent care c/o acute lower back pain radiating to her left hip since 2hrs ago. Pt reports Hx of lower back pain. she thinks she has 2 herniated discs in the lower back, but she can't recall specifically where. Pt states sometimes she does certain movement and her back locks. This morning she was sitting and was trying to pull a sheet under her and she heard a popping sound and lower back pain began Pain is 8/10 w/ sitting, walking and bending. Pt denies saddle anesthesia, urinary or fecal incontinence, urinary symptoms, numbness or tingling sensation over the lower extremities, SOB, chest pain abdominal pain, N/V/D. - History of Current Complaint Chief Complaint: UCBackPain Stated Complaint: BACK INJURY Time Seen by Provider: 08/01/18 13:53 Hx Obtained From: Patient Hx Last Menstrual Period: 07/22/18 Onset/Duration: Sudden Onset, Lasting Hours - 3 hrs, Still Present Timing: Constant Severity Initially: Moderate Severity Currently: Moderate Pain Intensity: 8 Pain Scale Used: 0-10 Numeric Back Pain: Is Discrete @ - lower back, Radiates To - left hip Character: Sharp - w/ sitting and walking, Spasmodic Aggravating Factor(s): Movement, Lifting, Bending, Walking Alleviating Factor(s): Rest Associated Signs And Symptoms: Positive: Negative. Negative: Swelling, Redness , Bruising, Fever, Weakness, Numbness, Tingling, Abdominal Pain, Flank Pain, Bladder Incontinence, Bowel Incontinence, Weight Loss, Pain with Weight Bearing - Risk Factors AAA Risk Factors: Negative TAD Risk Factors: Negative Cauda Equina Risk Factors: Negative Epidural Abscess Risk Factors: Negative - Allergies/Home Medications Allergies/Adverse Reactions: Allergies Allergy/AdvReac Type Severity Reaction Status Date / Time acetaminophen [From Percocet] Allergy Difficulty Verified 08/01/18 13:08 Breathing oxycodone [From Percocet] Allergy Difficulty Verified 08/01/18 13:08 Breathing PMH/Surg Hx/FS Hx/Imm Hx Previously Healthy: Yes Respiratory History: Asthma Psychological History: Anxiety, Depression Other History Of: Negative For: HIV, Hepatitis B, Hepatitis C, Anticoagulant Therapy - Surgical History Surgical History: Yes Surgery Procedure, Year, and Place: Adenoids - Family History Known Family History: Positive: Hypertension, Diabetes, Other - unspecified CA, thyroid disease Negative: Cardiac Disease - Social History Occupation: Employed Full-time Lives: With Family Alcohol Use: Occasionally Substance Use Type: Marijuana Smoking Status (MU): Never Smoked Tobacco - Immunization History Most Recent Influenza Vaccination: UTD Review of Systems All Other Systems Reviewed And Are Negative: Yes Constitutional: Positive: Negative Skin: Positive: Negative Eyes: Positive: Negative ENT: Positive: Negative Respiratory: Positive: Negative Cardiovascular: Positive: Negative Gastrointestinal: Positive: Negative Genitourinary: Positive: Negative Motor: Positive: Negative Neurovascular: Positive: Negative Musculoskeletal: Positive: Decreased ROM - lower back, Other: - lower back pain LF>RT Neurological: Positive: Negative Psychological: Positive: Negative Is Patient Immunocompromised?: No Physical Exam - Summary Physical Exam Summary: Vital Signs Reviewed: Yes Appearance: Well-Appearing, Well-Nourished, obese tall female sitting in the examining table w/o any apparent distress. Eyes: Positive: Conjunctiva Clear - PERRLA, EOMI. ENT: Positive: Normal ENT inspection, Hearing grossly normal, Pharynx normal, TMs normal, Uvula midline Neck: Positive: Supple, Nontender, No Lymphadenopathy Respiratory: Positive: Chest non-tender, Lungs clear, Normal breath sounds, No respiratory distress Cardiovascular: Positive: RRR, No Murmur, Pulses Normal, Brisk Capillary Refill Abdomen Description: Positive: Nontender, No Organomegaly, Soft. Negative: CVA Tenderness (R), CVA Tenderness (L) Bowel Sounds: Positive: Present Musculoskeletal: Positive: Strength Intact, BACK: Patient walked into the urgent care room with symmetric ambulation, No signs of limping, antalgic, able to bear weight. No signs of trauma, No masses palpated. Point tenderness at the level of L3-S1, left side paraspinal muscle spasm and tenderness at the same level, No CVAT, no flank ecchymosis . No sacroiliac notch tenderness, No saddle anesthesia.ROM: limited due to pain, Straight Leg Raise: negative. Patellar reflexes: brisk, symmetric Muscle strength lower extremities. Dorsiflexion/ plantar flexion of ankles. Heel/ toe walk. Lower extremities: Femoral, popliteal , posterior tibial, and dorsalis pedis pulses WNL. Pt refuse rectal exam Neurological: Positive: Alert, Muscle Tone Normal Psychological Exam: Normal Skin Exam: Normal Triage Information Reviewed: Yes Vital Signs: Initial Vital Signs Temp 98.2 F 08/01/18 13:04 Pulse 84 08/01/18 13:04 Resp 18 08/01/18 13:04 BP 122/75 08/01/18 13:04 Pulse Ox 100 08/01/18 13:04 Back Pain Course/Dx - Course Course Of Treatment: 27 y/o female presents to the urgent care c/o acute lower back pain radiating to her left hip since 2hrs ago. Pt reports Hx of lower back pain. she thinks she has 2 herniated discs in the lower back, but she can't recall specifically where. Pt states sometimes she does certain movement and her back locks. This morning she was sitting and was trying to pull a sheet under her and she heard a popping sound and lower back pain began Pain is 8/10 w / sitting, walking and bending. Pt denies saddle anesthesia, urinary or fecal incontinence, urinary symptoms, numbness or tingling sensation over the lower extremities, SOB, chest pain abdominal pain, N/V/D. Hx obtained. PE: Point tenderness at the level of the L3-S1 and left paraspinal muscle spasm at the same level on examination. LMP:07/22/2018. Pt declines test. Lumbosacral X-ray ordered, Impression: No acute osseous injury observed. Pt given Toradol IM inj by nurse, Pt tolerated well medication and pain decrease after 45min. Pt Rx Naproxen PO, flexeril PO and given a PT referral. Patient was instructed to the f/u [facility] in 1 week if symptoms do not improve or worsen. Patient understands and agrees. Patient is able to ambulate freely w/o aid or limp. Plan of care was discussed with the patient and patient understands and agrees. All questions were answered at patient satisfaction. Pt left clinic hemodynamically stable. - Differential Dx/Diagnosis Differential Diagnosis/HQI/PQRI: Compressive Cord Syndrome, Fracture, Herniated Disc, Renal Colic, Strain, Sprain Provider Diagnosis: Low back strain, Muscle spasm of back Discharge - Sign-Out/Discharge Documenting (check all that apply): Patient Departure - D/c home All imaging exams completed and their final reports reviewed: Yes - Discharge Plan Condition: Stable Disposition: HOME Prescriptions: Cyclobenzaprine TAB* [Flexeril 10 MG TAB*] 10 mg PO TID PRN #30 tab PRN Reason: Spasms - Back Naproxen TAB* [Naprosyn 250 mg TAB*] 250 mg PO Q8H PRN #30 tab PRN Reason: Pain Patient Education Materials: Low Back Strain (ED), Muscle Spasm (ED) Forms: *Work Release Referrals: Joy Lazo PA [Primary Care Provider] - 1 Week [facility] [Provider Group] - 3 Days Additional Instructions: 1- Please take Naproxen PO as directed after meals for pain. 2- Take Flexeril PO as directed for muscle spasm. Please do not drive while taking the medication. 3- Wear a back support. Avoid strenuous exercise of heavy lifting. 4- Please follow up with Orthopedic Dr from Sports Medicine or your PCP in 3 days if not improvement of symptoms, for further management. - Billing Disposition and Condition Condition: STABLE Disposition: Home
[2018-08-01] MEDS ORDERED: Ketorolac INJ* 30 MG/ML 1 ML VIAL IM ONE (14:20)
== END 2018-08-01 15:35 | disposition home or self-care (01) ==
LOC: UCEAST 12:21
DX: Z88.6 Allergy status to analgesic agent (principal); Z88.5 Allergy status to narcotic agent; S39.012A Strain of muscle, fascia and tendon of lower back, initial encounter; X50.0XXA Overexertion from strenuous movement or load, initial encounter; Y93.89 Activity, other specified; Y92.9 Unspecified place or not applicable
CPT/HCPCS: 72110; 96372; 99212; G0463; J1885

== ENCOUNTER 2018-09-24 09:56 | Emergency (ER) | payer BC ==
[2018-09-24 10:05] VITALS: BP 124/71
--- NOTE | 2018-09-24 10:38 | UC ---
Back Pain HPI - HPI Summary HPI Summary: shoveling heavy snow last week and strained low back. has had similar symps in past with back strain. is sing Anaprox for pain and hot packs. does not like muscle relaxers. pain worse when bending forward, better if lies down - History of Current Complaint Chief Complaint: UCBackPain Stated Complaint: BACK PAIN Time Seen by Provider: 09/24/18 10:28 Hx Obtained From: Patient Hx Last Menstrual Period: 09/16/18 ?: No Onset/Duration: Gradual Onset Timing: Constant Severity Initially: Moderate Severity Currently: Moderate Pain Intensity: 8 Back Pain: Is Discrete @ - bilateral lower back Character: Throbbing, Stiffness Aggravating Factor(s): Movement Alleviating Factor(s): Rest, Heat, OTC Meds Associated Signs And Symptoms: Positive: Negative, Fever. Negative: Bladder Incontinence, Bowel Incontinence - Risk Factors Cauda Equina Risk Factors: Negative - Allergies/Home Medications Allergies/Adverse Reactions: Allergies Allergy/AdvReac Type Severity Reaction Status Date / Time acetaminophen [From Percocet] Allergy Difficulty Verified 09/24/18 10:05 Breathing oxycodone [From Percocet] Allergy Difficulty Verified 09/24/18 10:05 Breathing PMH/Surg Hx/FS Hx/Imm Hx Previously Healthy: Yes Other History Of: Negative For: HIV, Hepatitis B, Hepatitis C, Anticoagulant Therapy - Surgical History Surgical History: Yes Surgery Procedure, Year, and Place: Adenoids - Family History Known Family History: Positive: Hypertension, Diabetes, Other - unspecified CA, thyroid disease Negative: Cardiac Disease - Social History Occupation: Employed Full-time - [employer] Lives: Alone Alcohol Use: Occasionally Substance Use Type: Marijuana Smoking Status (MU): Never Smoked Tobacco - Immunization History Most Recent Influenza Vaccination: UTD Review of Systems All Other Systems Reviewed And Are Negative: Yes Constitutional: Positive: Negative Respiratory: Positive: Negative Cardiovascular: Positive: Negative Musculoskeletal: Positive: Other: - low back pain Neurological: Positive: Negative Psychological: Positive: Negative Is Patient Immunocompromised?: No Physical Exam Triage Information Reviewed: Yes Appearance: Well-Appearing, No Pain Distress - although sitting stiffly, Well- Nourished Vital Signs: Initial Vital Signs Temp 98.9 F 09/24/18 10:01 Pulse 94 09/24/18 10:01 Resp 18 09/24/18 10:01 BP 124/71 09/24/18 10:01 Pulse Ox 98 09/24/18 10:01 Vital Signs Reviewed: Yes Respiratory Exam: Normal Cardiovascular Exam: Normal Musculoskeletal: Positive: ROM Limited @ - low back d/t pain, amb with steady gait Neurological Exam: Normal Psychological Exam: Normal Skin Exam: Normal Skin: Negative: Rashes Back Pain Course/Dx - Differential Dx/Diagnosis Differential Diagnosis/HQI/PQRI: Cauda Equina Syndrome, Strain, Sprain Provider Diagnosis: Low back pain Discharge - Sign-Out/Discharge Documenting (check all that apply): Patient Departure All imaging exams completed and their final reports reviewed: No Studies - Discharge Plan Condition: Good Disposition: HOME Patient Education Materials: Low Back Strain (ED) Forms: *Work Release Referrals: Joy Lazo PA [Primary Care Provider] - 2 Days (if no better) Additional Instructions: rest, apply warm packs to low back do gentle stretchs and ROM exercises for low back Anaprox over the counter for pain as directed report to ER if your symptoms worsen at any time - Billing Disposition and Condition Condition: GOOD Disposition: Home
== END 2018-09-24 10:50 | disposition home or self-care (01) ==
LOC: UCEAST 09:56
DX: M54.5 Low back pain (principal); Z88.8 Allergy status to other drugs, medicaments and biological substances
CPT/HCPCS: 99211; G0463

== ENCOUNTER 2019-02-19 11:38 | Emergency (ER) | payer BC ==
[2019-02-19 11:47] VITALS: BP 119/79
--- NOTE | 2019-02-19 12:02 | UC ---
Skin Complaint HPI - HPI Summary HPI Summary: Tick bite yesterday and removed herself. She thinks she removed all of tick. 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 it was not engorged. denies any other symptoms. n she doesn 't know if it was dog tick but brings it in today. - History of Current Complaint Chief Complaint: UCSkin Time Seen by Provider: 02/19/19 11:55 Stated Complaint: TICK BITE Hx Obtained From: Patient Hx Last Menstrual Period: 01/27/19 Onset/Duration: Sudden Onset Pain Intensity: 0 Pain Scale Used: 0-10 Numeric Location: Discrete Aggravating Factor(s): Nothing Alleviating Factor(s): Nothing - Allergy/Home Medications Allergies/Adverse Reactions: Allergies Allergy/AdvReac Type Severity Reaction Status Date / Time acetaminophen [From Percocet] Allergy Difficulty Verified 02/19/19 11:47 Breathing oxycodone [From Percocet] Allergy Difficulty Verified 02/19/19 11:47 Breathing Home Medications: Home Medications Sertraline* [Zoloft*] 25 mg PO BID 02/19/19 [History Confirmed 02/19/19] PMH/Surg Hx/FS Hx/Imm Hx - Additional Past Medical History Additional PMH: no chronic condition Previously Healthy: Yes Other History Of: Negative For: HIV, Hepatitis B, Hepatitis C, Anticoagulant Therapy - Surgical History Surgical History: Yes Surgery Procedure, Year, and Place: Adenoids - Family History Known Family History: Positive: Hypertension, Diabetes, Other - unspecified CA, thyroid disease Negative: Cardiac Disease - Social History Alcohol Use: Occasionally Substance Use Type: Marijuana Substance Use Comment - Amount & Last Used: occassionally Smoking Status (MU): Never Smoked Tobacco - Immunization History Most Recent Influenza Vaccination: UTD Review of Systems All Other Systems Reviewed And Are Negative: Yes Constitutional: Positive: Negative. Negative: Fever Skin: Negative: Rash Musculoskeletal: Negative: Arthralgia Physical Exam Triage Information Reviewed: Yes Appearance: Well-Appearing Vital Signs: Initial Vital Signs Temp 98.2 F 02/19/19 11:44 Pulse 84 02/19/19 11:44 Resp 16 02/19/19 11:44 BP 119/79 02/19/19 11:44 Pulse Ox 100 02/19/19 11:44 Vital Signs Reviewed: Yes Respiratory Exam: Normal Cardiovascular Exam: Normal Skin: Positive: Other - L flank area has small area of irritation from tick bite. Course/Dx - Course Course Of Treatment: Tick bite and successful removal at home yesterday. Tick not engorged and attached <24hrs. We discussed prophylaxis and when to start this and pt feels she wants to take even though it was likely <36hrs which ;is CDC recommendation. She feels we are in endemic area and wants to prevent. rx'd per her request - Differential Diagnoses - Skin Complaint Differential Diagnoses: Tick Born Illness, Other - bite - Diagnoses Provider Diagnosis: Tick bite Discharge - Sign-Out/Discharge Documenting (check all that apply): Patient Departure All imaging exams completed and their final reports reviewed: No Studies - Discharge Plan Condition: Good Disposition: HOME Prescriptions: DOXYcycline CAP(*) [DOXYcycline 100MG CAP(*)] 100 mg PO BID 1 Days #2 cap Patient Education Materials: Lyme Disease (ED) Referrals: Joy Lazo PA [Primary Care Provider] - - Billing Disposition and Condition Condition: GOOD Disposition: Home - Attestation Statements Provider Attestation: I was available for consult. This patient was seen by the MARITZA. The patient was not presented to , seen by or examined by mi -Lala John MD
== END 2019-02-19 12:30 | disposition home or self-care (01) ==
LOC: UCEAST 11:38
DX: T63.481A Toxic effect of venom of other arthropod, accidental (unintentional), initial encounter (principal); Y92.9 Unspecified place or not applicable; Z88.5 Allergy status to narcotic agent
CPT/HCPCS: 99212; G0463

== ENCOUNTER 2019-06-30 13:36 | Emergency (ER) | payer BC ==
--- OUTSIDE RECORDS SUMMARY | 2019-06-30 13:43 | XMS REPORT | Continuity of Care Document ---
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 [phone] Problems Active Problems Provider Date Dysthymia AGUILA Gustafson Onset: 12/26/2018 Low back pain AGUILA Gustafson Onset: 12/26/2018 Keloid scar AGUILA Gustafson Onset: 12/26/2018 Note: (R) ear Degenerative joint disease involving multiple AGUILA Gustafson Onset: 10/2018 joints Note: lumbar spine, S-I joint, (R) hip Resolved Problems Major depression, single episode AGUILA Gustafson Onset: 12/26/2018 Resolved: 12/30/2018 Note: 2010 Social History Type Date Description Comments Sex Unknown ETOH Use Currently consumes alcohol Socially Tobacco Use Start: Unknown Patient has never smoked Smoking Status Reviewed: 06/26/19 Patient has never smoked Exercise Type/Frequency Exercises regularly Allergies, Adverse Reactions, Alerts Active Allergies Reaction Severity Comments Date Acetaminophen Difficulty breathing 12/26/2018 Percocet Difficulty breathing 12/26/2018 Medications Active Medications SIG Qnty Indications Ordering Date Provider Boostrix 0.5ml intramuscular .500ml Ravi 06/26/2019 x , december sub Adacel MD Sridhar 5-2.5-18.5LF-mcg/0. 5 Suspension Sertraline HCL 1 tab by mouth twice 180tabs Ravi 12/26/2018 25mg a day MD Sridhar Tablets Multi Vitamin Daily 1 by mouth every day 30tabs Ravi 12/26/2018 MD Sridhar Tablets Probiotic 1 by mouth every day Ravi 12/26/2018 Samir Waller MD Capsules Immunizations CPT Code Status Date Vaccine Lot # [id number] Given 06/26/2019 Influenza Virus Vaccine, Flu>3yr/ [id number] Quadrivalent, Split, Preservative Free Vital Signs Date Vital Result Comment 06/26/2019 11:03am Height 69.5 inches 5'9.50" Weight 269.44 lb Heart Rate 98 /min BP Systolic Sitting 122 mmHg BP Diastolic Sitting 70 mmHg O2 % BldC Oximetry 98 % BMI (Body Mass Index) 39.2 kg/m2 02/23/2019 10:05am Height 69.5 inches 5'9.50" Weight 263.00 lb Heart Rate 92 /min BP Systolic Sitting 124 mmHg BP Diastolic Sitting 74 mmHg O2 % BldC Oximetry 97 % BMI (Body Mass Index) 38.3 kg/m2 Results Description No Information Available Procedures Description No Information Available Medical Devices Description No Information Available Encounters Type Date Location Provider Dx Diagnosis Office Visit 02/23/2019 [facility] Joy W57.xxxA Bit/stung by 10:00a AGUILA Lazo nonvenom insect & oth nonvenom arthropods, init S70.272A Other superficial bite of hip, left hip, initial encounter Office Visit 12/26/2018 11:30a [facility] F34.1 Dysthymic Care AGUILA Lzao disorder Assessments Date Code Description Provider 06/26/2019 F34.1 Dysthymic disorder AGUILA Gustafson 06/26/2019 Z23 Encounter for immunization AGUILA Gustafson 02/23/2019 W57.xxxA Bitten or stung by nonvenomous insect and AGUILA Gustafson other nonvenomous 02/23/2019 S70.272A Other superficial bite of hip, left hip, AGUILA Gustafson initial encounter 12/26/2018 F34.1 Dysthymic disorder AGUILA Gustafson Plan of Treatment Future Appointment(s):12/26/2019 11:30 am - AGUILA Gustafson at [facility]06/26/2019 - Joy Lazo, PAF34.1 Dysthymic disorderComments:Current medication(s): Sertraline 25mg BID Continue [id number] Encounter for immunizationComments:Seasonal flu vaccine administered today.AllNew Medication: Boostrix 5-2.5-18.5 LF-mcg/0.5 - 0.5ml intramuscular x December sub Adacel Functional Status Description No Information Available Mental Status Description No Information Available Referrals Description No Information Available
[2019-06-30 13:44] VITALS: BP 130/81
--- NOTE | 2019-06-30 13:47 | UC ---
Throat Pain/Nasal Abimael HPI - HPI Summary HPI Summary: 28 yo female presents with sore throat. She tells me that for the last 2 days she has had a sore throat, fatigue, and body aches. She has been taking aleve OTC with little relief. Reports decreased appetite, but is tolerating po well. Has felt feverish, but has not taken her temperature. Denies sinus symptoms, cough, SOB, chest pain, rash, abdominal pain, n/v. - History of Current Complaint Chief Complaint: UCGeneralIllness Stated Complaint: SORE THROAT Time Seen by Provider: 06/30/19 13:47 Hx Last Menstrual Period: 06/13/19 Onset/Duration: Sudden Onset Severity: Moderate Pain Intensity: 5 Pain Scale Used: 0-10 Numeric - Allergies/Home Medications Allergies/Adverse Reactions: Allergies Allergy/AdvReac Type Severity Reaction Status Date / Time acetaminophen [From Percocet] Allergy Difficulty Verified 06/30/19 13:45 Breathing oxycodone [From Percocet] Allergy Difficulty Verified 06/30/19 13:45 Breathing PMH/Surg Hx/FS Hx/Imm Hx Respiratory History: Asthma Psychological History: Anxiety, Depression Other History Of: Negative For: HIV, Hepatitis B, Hepatitis C, Anticoagulant Therapy - Surgical History Surgical History: Yes Surgery Procedure, Year, and Place: Adenoids - Family History Known Family History: Positive: Hypertension, Diabetes, Other - unspecified CA, thyroid disease Negative: Cardiac Disease - Social History Occupation: Employed Full-time Lives: With Family Alcohol Use: Occasionally Substance Use Type: Marijuana Substance Use Comment - Amount & Last Used: occassionally Smoking Status (MU): Never Smoked Tobacco - Immunization History Most Recent Influenza Vaccination: UTD Review of Systems All Other Systems Reviewed And Are Negative: No Constitutional: Positive: Fatigue Skin: Positive: Negative Eyes: Positive: Negative ENT: Positive: Sore Throat Respiratory: Positive: Negative Cardiovascular: Positive: Negative Neurovascular: Positive: Negative Neurological: Positive: Negative Psychological: Positive: Negative Physical Exam - Summary Physical Exam Summary: GENERAL: NAD. WDWN. No pain distress. SKIN: No rashes, sores, lesions, or open wounds. HEENT: Head: AT/NC Eyes: EOM intact. Conjunctiva clear without inflammation or discharge. Ears: Hearing grossly normal. TMs intact, no bulging, erythema, or edema. Nose: Nasal mucosa pink and moist. NTTP maxillary and frontal sinus. Throat: Posterior oropharynx without exudates, erythema, or tonsillar enlargement. Uvula midline. NECK: Supple. Nontender. No lymphadenopathy. CHEST: CTAB. No accessory muscle use. Breathing comfortably and in no distress. CV: RRR. Pulses intact. Cap refill <2seconds NEURO: Alert. PSYCH: Age appropriate behavior. Triage Information Reviewed: Yes Vital Signs: Initial Vital Signs Temp 97.7 F 06/30/19 13:41 Pulse 100 06/30/19 13:41 Resp 19 06/30/19 13:41 BP 130/81 06/30/19 13:41 Pulse Ox 100 06/30/19 13:41 Laboratory Tests 06/30/19 13:51 Group A Strep Rapid Negative Vital Signs Reviewed: Yes Throat Pain/Nasal Course/Dx - Course Course Of Treatment: POC strep negative. Suspect viral sore throat. Will draw for CBC and mono - Differential Dx/Diagnosis Provider Diagnosis: Sore throat Discharge ED - Sign-Out/Discharge Documenting (check all that apply): Patient Departure All imaging exams completed and their final reports reviewed: No Studies - Discharge Plan Condition: Stable Disposition: HOME Patient Education Materials: Mononucleosis (ED), Viral Syndrome (ED) Forms: *Work Release Referrals: Joy Lazo PA [Primary Care Provider] - Additional Instructions: If you develop a fever, shortness of breath, chest pain, new or worsening symptoms - please call your PCP or go to the ED immediately. Your symptoms are likely from a viral infection. Viral infections do not respond to antibiotics and are limited to the treatment of symptoms. Viral infections typically run their course in 7-10 days. Drink plenty of fluids to avoid dehydration especially if you are running any fever. Use salt water gargles several times a day. Take over the counter acetaminophen (Tylenol) or ibuprofen (Advil, Motrin) according to directions as needed for pain or fever. You may also use Chloraseptic spray or Cepacol lonzenges according to directions which contain a numbing medication and can provide some temporary relief from your sore throat. Return here or follow up with your primary care provider in 7 days if symptoms persist. - Billing Disposition and Condition Condition: STABLE Disposition: Home
[2019-07-01 09:56] LABS: ABS Basophils 0.1 10^3/ul (0-0.2); ABS Eosinophils 0.2 10^3/ul (0-0.6); ABS Lymphocytes 1.6 10^3/ul (1.0-4.8); ABS Neutrophils 9.8 10^3/ul (1.5-7.7); Eosinophil % 1.2 %; Hematocrit 40 % (35-47); Lymphocyte % 12.4 %; Mean Corpuscular HGB Conc 33 g/dL (31-36); Mean Corpuscular Hemoglobin 28 pg (27-31); Mean Corpuscular Volume 85 fL (80-97); Mean Platelet Volume 10.3 fL (7.4-10.4); Platelet Count 248 10^3/uL (150-450); Red Blood Count 4.67 10^6 /uL (3.70-4.87); Red Cell Distribution Width 14 % (10-15); White Blood Count 12.6 10^3/uL (3.5-10.8)
== END 2019-06-30 14:18 | disposition home or self-care (01) ==
LOC: UCEAST 13:36
DX: J02.9 Acute pharyngitis, unspecified (principal); I10 Essential (primary) hypertension; R53.83 Other fatigue; Z88.5 Allergy status to narcotic agent; Z88.6 Allergy status to analgesic agent
CPT/HCPCS: 36415; 85025; 86308; 87651; 99211; G0463

== ENCOUNTER 2019-07-03 11:29 | Emergency (ER) | payer BC ==
--- NOTE | 2019-07-03 13:27 | UC ---
Throat Pain/Nasal Abimael HPI - HPI Summary HPI Summary: Patient presents to urgent care reported 3-4 days progressive her congestion and right ear pain and cough. Patient states she is bringing up yellow sputum. Patient states she feels generally fatigued. No fevers, chills, rash. No abdominal pain. No nausea or vomiting. No diarrhea. Patient with decreased appetite. Patient states she is not . Patient's medications reviewed this visit. - History of Current Complaint Chief Complaint: UCRespiratory Stated Complaint: EAR PAIN Time Seen by Provider: 07/03/19 13:18 Hx Obtained From: Patient Hx Last Menstrual Period: 06/13/19 Severity: Moderate Pain Intensity: 8 - Allergies/Home Medications Allergies/Adverse Reactions: Allergies Allergy/AdvReac Type Severity Reaction Status Date / Time acetaminophen [From Percocet] Allergy Difficulty Verified 06/30/19 13:45 Breathing oxycodone [From Percocet] Allergy Difficulty Verified 06/30/19 13:45 Breathing PMH/Surg Hx/FS Hx/Imm Hx Previously Healthy: Yes Other History Of: Negative For: HIV, Hepatitis B, Hepatitis C, Anticoagulant Therapy - Surgical History Surgical History: Yes Surgery Procedure, Year, and Place: Adenoids - Family History Known Family History: Positive: Hypertension, Diabetes, Other - unspecified CA, thyroid disease, Non-Contributory Negative: Cardiac Disease - Social History Occupation: Employed Full-time Lives: With Family Alcohol Use: Occasionally Substance Use Type: Marijuana Substance Use Comment - Amount & Last Used: occassionally Smoking Status (MU): Never Smoked Tobacco - Immunization History Most Recent Influenza Vaccination: UTD Review of Systems All Other Systems Reviewed And Are Negative: Yes Constitutional: Positive: Fatigue Skin: Positive: Negative Eyes: Positive: Negative ENT: Positive: Ear Ache, Nasal Discharge, Sinus Congestion, Sinus Pain/ Tenderness Respiratory: Positive: Negative Cardiovascular: Positive: Negative Genitourinary: Positive: Negative Is Patient Immunocompromised?: No Physical Exam - Summary Physical Exam Summary: Vital Signs Reviewed: Yes A+Ox3, no distress Eyes: Conjunctiva Clear, FRANDY. EOM intact and full ENT: Hearing grossly normal Right TM ++ fluid, erythema, slight buldge, Left TM turbinates inflammed and boggy, + PND, mmoist, uvula midline, no exudate, no erythema Neck: Positive: Supple Respiratory: Positive: No respiratory distress, No accessory muscle use + coarse cough, scattered wheeze - exp speaking full sentences except interrupted with cough Cardiovascular: RRR nl s1, s2 no m/r CBT <2 sec abd soft + BS nt/nd no guarding, no distension Musculoskeletal Exam: CONNOLLY x 4 without difficulty Strength Intact, ROM Intact Neurological: Positive: Alert, + sensation throughout Psychological: Positive: Normal Response To examiner Skin: Positive: no rash, no ecchymosis Triage Information Reviewed: Yes Vital Signs: Initial Vital Signs Temp 98.8 F 07/03/19 11:55 Pulse 100 07/03/19 11:55 Resp 20 07/03/19 11:55 BP 114/78 07/03/19 11:55 Pulse Ox 100 07/03/19 11:55 Re-Evaluation - Re-Evaluation First Eval Change: Improved - Patient improved following up. This is resolved states breathing easier. Coughing improved. We'll discharge with MDI and a bandage. Return precautions discussed. Patient comfortable the plan. Throat Pain/Nasal Course/Dx - Course Course Of Treatment: Patient presents to urgent care reporting 3-4 days progressive head congestion right ear pain and coarse cough productive sputum. Patient denies fevers or chills but states she is fatigued. Patient denies sick contacts. On exam vital signs are stable. Patient with a coarse cough and respiratory wheezing. Patient speaking full easy symptoms or cough. Vital signs are stable. Patient with coarse cough and expiratory wheezes. Clinically patient also with right otitis media. Patient with congested turbinates and postnasal drip. DuoNeb. Anticipate discharge products and MDI. We'll reassess after neb. Patient comfortable and agreed with plan. - Differential Dx/Diagnosis Provider Diagnosis: Otitis media, Acute bronchitis Discharge ED - Sign-Out/Discharge Documenting (check all that apply): Patient Departure All imaging exams completed and their final reports reviewed: No Studies - Discharge Plan Condition: Stable Disposition: HOME Prescriptions: Albuterol HFA INHALER* [Ventolin HFA Inhaler*] 2 puff INH Q4H PRN #1 mdi PRN Reason: wheeze Cefdinir [Cefdinir 300 MG CAP] 300 mg PO BID #20 capsule Inhaler, Assist Devices [Aerochamber Mv] 1 each PO Q4HR #1 spacer predniSONE TAB* [Deltasone TAB*] 50 mg PO DAILY #5 tab Patient Education Materials: Ear Infection (ED), Acute Bronchitis (ED) Forms: *Work Release Referrals: Joy Lazo PA [Primary Care Provider] - Additional Instructions: - Stay well hydrated. Drink plenty of non-alcoholic, non-caffinated beverages. - Okay to take ibuprofen (Advil, Motrin) 600mg every 6 hours for pain or fever. Take with food. Do NOT take for more than 4-5 days. - These infections are spread by secretions - do NOT share eating or drinking utensils - clean items you share with other people such as cell phones, computer mouse, TV remote, computer tablets,etc. Once you have been antibiotics for 2 days, change your toothbrush and your pillowcase. - get plenty of restful sleep - Use your inhaler - 2 puffs every 4 hours today and tomorrow, then as needed - humidify the air in the room where you sleep - boil water, run a hot steam shower, vaporizer, cups of water by heat register - okay to take over the counter decongestant and cough medication - contact your doctor or return with questions or concerns - Billing Disposition and Condition Condition: STABLE Disposition: Home
[2019-07-03] MEDS ORDERED: Albuterol/Ipratropium NEB.SOL* Albuterol 2.5 MG/Ipratropium 0.5 MG 3 ML INH ONE (13:39)
[2019-07-03 13:45] VITALS: BP 128/76
== END 2019-07-03 14:17 | disposition home or self-care (01) ==
LOC: UCEAST 11:29
DX: H66.91 Otitis media, unspecified, right ear (principal); J20.9 Acute bronchitis, unspecified; Z88.6 Allergy status to analgesic agent; Z88.5 Allergy status to narcotic agent
CPT/HCPCS: 99212; A9270-GY; G0463

== ENCOUNTER 2019-07-13 13:01 | Emergency (ER) | payer BC ==
--- OUTSIDE RECORDS SUMMARY | 2019-07-13 13:08 | XMS REPORT ---
:1990 Author Name Candice Bond Address [facility] [address] [place] [address] Care Team Providers Name Role Phone Candice Bond Unavailable Unavailable Allergies, Adverse Reactions, Alerts Allergy Code CodeSystem Reaction Severity Status Substance RxNorm Medications Medication Medication Medication Start Route Dose Status Fill Code CodeSystem Date Instructions RxNorm NoCurrentDosage Active NoCurrentFrequency Hospital Discharge Medications Medication Direction Start Date Status Indications Fill Instuctions No Discharge Medication Problems Problem Name Code CodeSystem Start Date End Date Status SNOMED-CT 2018-11-18 Active SNOMED-CT 2018-12-14 Active SNOMED-CT 2018-12-14 Active Laboratory Values/Results Test Test Code Code System Actual Result Date LOINC Procedures Procedure Name Code CodeSystem Target Site Date of Procedure SNOMED-CT () 2018-12-05 SNOMED-CT () 2018-12-19 SNOMED-CT () 2018-12-12 SNOMED-CT () 2018-12-26 SNOMED-CT () 2019-01-02 SNOMED-CT () 2019-02-06 SNOMED-CT () 2019-01-16 SNOMED-CT () 2019-03-13 SNOMED-CT () 2019-03-20 SNOMED-CT () 2019-03-27 SNOMED-CT () 2019-04-03 SNOMED-CT () 2019-02-13 SNOMED-CT () 2019-04-17 SNOMED-CT () 2019-05-12 SNOMED-CT () 2019-05-19 Encounter Diagnosis Code CodeSystem Description Date Finding Finding Status Code 20097 [facility] Psychotherapy - 2018-- - Active Individual 30 min 0 SNOMED-CT Vital Signs Vitals Date Value Immunizations Vaccine Name Vaccine Code CodeSystem Date Status Social History Element Description Start Date End Date Code CodeSystem Description SNOMED-CT Hospital Discharge Instructions Reason For Referral
[2019-07-13 13:17] VITALS: BP 129/81
--- NOTE | 2019-07-13 13:25 | UC ---
Throat Pain/Nasal Abimael HPI - HPI Summary HPI Summary: 28-year-old female who had bronchitis and bilateral ear infection 2 weeks ago. She just finished a ten-day course of Ceftin ear today. She continues to have a harsh cough. She states she has a lot of postnasal drainage. She is using her albuterol inhaler as needed for any tight cough or wheezing. - History of Current Complaint Chief Complaint: UCEar Stated Complaint: EAR PAIN Time Seen by Provider: 07/13/19 13:08 Hx Obtained From: Patient Hx Last Menstrual Period: last week ?: No Onset/Duration: Gradual Onset Severity: Mild Pain Intensity: 3 Cough: Nonproductive Associated Signs & Symptoms: Positive: Nasal Discharge, Other - Patient is mostly bothered by postnasal drainage which then causes coughing. - Allergies/Home Medications Allergies/Adverse Reactions: Allergies Allergy/AdvReac Type Severity Reaction Status Date / Time acetaminophen [From Percocet] Allergy Difficulty Verified 07/13/19 13:18 Breathing oxycodone [From Percocet] Allergy Difficulty Verified 07/13/19 13:18 Breathing PMH/Surg Hx/FS Hx/Imm Hx Previously Healthy: Yes Respiratory History: Asthma Other History Of: Negative For: HIV, Hepatitis B, Hepatitis C, Anticoagulant Therapy - Surgical History Surgical History: Yes Surgery Procedure, Year, and Place: Adenoids - Family History Known Family History: Positive: Hypertension, Diabetes, Other - unspecified CA, thyroid disease, Non-Contributory Negative: Cardiac Disease - Social History Occupation: Employed Full-time Alcohol Use: Rare Substance Use Type: Marijuana Substance Use Comment - Amount & Last Used: occassionally Smoking Status (MU): Never Smoked Tobacco - Immunization History Most Recent Influenza Vaccination: UTD Review of Systems All Other Systems Reviewed And Are Negative: Yes Constitutional: Positive: Negative ENT: Positive: Ear Ache, Other - Postnasal drainage. Respiratory: Positive: Cough - Harsh cough, nonproductive. Is Patient Immunocompromised?: No Physical Exam Triage Information Reviewed: Yes Appearance: Well-Appearing, No Pain Distress, Well-Nourished Vital Signs: Initial Vital Signs Temp 97.8 F 07/13/19 13:14 Pulse 88 07/13/19 13:14 Resp 18 07/13/19 13:14 BP 129/81 07/13/19 13:14 Pulse Ox 100 07/13/19 13:14 Vital Signs Reviewed: Yes Eyes: Positive: Conjunctiva Clear ENT: Positive: Hearing grossly normal, Pharynx normal, Nasal congestion - Clear postnasal drainage, TMs normal, Uvula midline Neck: Positive: Supple, Nontender, No Lymphadenopathy Respiratory: Positive: Lungs clear, Normal breath sounds, No respiratory distress, No accessory muscle use Cardiovascular: Positive: RRR, No Murmur, Pulses Normal, Brisk Capillary Refill Musculoskeletal Exam: Normal Neurological Exam: Normal Psychological Exam: Normal Skin Exam: Normal Throat Pain/Nasal Course/Dx - Course Course Of Treatment: Patient is comfortable here. I believe more of her symptoms are due to postnasal drainage which she can control with some tea as well as throat lozenges. She is to use her albuterol inhaler 2 puffs every 4 hours as needed for wheezing or tight cough. She is to follow-up with her primary care provider in 4 or 5 days if no improvement or sooner if worsening symptoms. - Differential Dx/Diagnosis Provider Diagnosis: Post-nasal drainage Discharge ED - Sign-Out/Discharge Documenting (check all that apply): Patient Departure All imaging exams completed and their final reports reviewed: No Studies - Discharge Plan Condition: Good Disposition: HOME Patient Education Materials: Postnasal Drip (DC) Referrals: Joy Lazo PA [Primary Care Provider] - Additional Instructions: Continue your present medications. Use her albuterol inhaler 2 puffs every 4 hours as needed for tight cough or wheezing. Recheck with your primary care provider in 4- 5 days if no improvement. - Billing Disposition and Condition Condition: GOOD Disposition: Home
== END 2019-07-13 13:27 | disposition home or self-care (01) ==
LOC: UCEAST 13:01
DX: R09.89 Other specified symptoms and signs involving the circulatory and respiratory systems (principal); J45.909 Unspecified asthma, uncomplicated; H92.03 Otalgia, bilateral; Z87.09 Personal history of other diseases of the respiratory system; Z88.5 Allergy status to narcotic agent
CPT/HCPCS: 99211; G0463

== ENCOUNTER 2019-08-02 17:39 | Emergency (ER) | payer BC ==
[2019-08-02 18:11] VITALS: BP 115/78
--- NOTE | 2019-08-02 18:28 | UC ---
Neck Pain HPI - HPI Summary HPI Summary: 28 yo woman who strained her neck when she bent to put her pants on this afternoon. Unable to move her neck well, without radiation of pain to the arms, and no restrictions of arm movements. She has applied a tiger balm patch with some relief of pain, and has used CBD. Hx of acute low back spasms in the past. - History of Current Complaint Chief Complaint: UCUpperExtremity Stated Complaint: NECK INJURY Time Seen by Provider: 08/02/19 18:20 Hx Obtained From: Patient Hx Last Menstrual Period: 07/21/19 Onset/Duration Of Injury/Symptoms: Hours Timing: Constant Onset/Duration: Sudden Onset, Lasting Hours Severity: Moderate Pain Intensity: 8 Character: Aching, Stiff Aggravating Factors: Position, Movement Alleviating Factors: OTC Meds Associated Signs & Symptoms: Positive: Negative - Risk Factors Meningitis Risk Factors: Negative - Allergies/Home Medications Allergies/Adverse Reactions: Allergies Allergy/AdvReac Type Severity Reaction Status Date / Time acetaminophen [From Percocet] Allergy Difficulty Verified 08/02/19 18:11 Breathing oxycodone [From Percocet] Allergy Difficulty Verified 08/02/19 18:11 Breathing PMH/Surg Hx/FS Hx/Imm Hx Previously Healthy: Yes Psychological History: Anxiety, Depression, Post Traumatic Stress Disorder Other History Of: Negative For: HIV, Hepatitis B, Hepatitis C, Anticoagulant Therapy - Surgical History Surgical History: Yes Surgery Procedure, Year, and Place: Adenoids - Family History Known Family History: Positive: Hypertension, Diabetes, Other - unspecified CA, thyroid disease, Non-Contributory Negative: Cardiac Disease - Social History Occupation: Employed Full-time Lives: Dormitory/Roommates Alcohol Use: Rare Substance Use Type: Marijuana Substance Use Comment - Amount & Last Used: occassionally Smoking Status (MU): Never Smoked Tobacco - Immunization History Most Recent Influenza Vaccination: UTD Review of Systems All Other Systems Reviewed And Are Negative: Yes Constitutional: Positive: Negative Skin: Positive: Negative Eyes: Positive: Negative ENT: Positive: Negative Respiratory: Positive: Negative Cardiovascular: Positive: Negative Gastrointestinal: Positive: Negative Genitourinary: Positive: Negative Motor: Positive: Decreased ROM - cervical spine Musculoskeletal: Positive: Arthralgia Neurological: Positive: Negative. Negative: Paresthesia, Numbness Psychological: Positive: Anxious Is Patient Immunocompromised?: No Physical Exam Triage Information Reviewed: Yes Appearance: Well-Appearing, Pain Distress - moderate; holding head stiffly and resisting movement., Obese Vital Signs: Initial Vital Signs Temp 98.2 F 08/02/19 18:06 Pulse 82 08/02/19 18:06 Resp 16 08/02/19 18:06 BP 115/78 08/02/19 18:06 Pulse Ox 100 08/02/19 18:06 Eye Exam: Normal ENT: Positive: Pharynx normal Neck: Positive: Tenderness @ - paraspinal muscles., Other: - Decreased range of motion with FF to 10 degrees, extension limited to 10 degrees, pain with rotation and lateral bending with restriction. Respiratory: Positive: Lungs clear, Normal breath sounds Cardiovascular: Positive: RRR, No Murmur Neurological Exam: Other - No pronator drift. 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 Neurological: Positive: Alert, Muscle Tone Normal Psychological Exam: Normal Skin Exam: Normal Re-Evaluation - Re-Evaluation First Eval Re-Evaluation Time: 19:15 Change: Improved - mild improvement in pain with improved range of motion Neck Pain Course/Dx - Course Course Of Treatment: nsaid's, muscle relaxants and range of motion exercises to promote return of rom. Has referral to PT if needed. - Differential Dx/Diagnosis Differential Dx/HQI/PQRI: Dystonia, Strain Provider Diagnosis: Cervical muscle strain Discharge ED - Sign-Out/Discharge Documenting (check all that apply): Patient Departure All imaging exams completed and their final reports reviewed: No Studies - Discharge Plan Condition: Stable Disposition: HOME Prescriptions: Cyclobenzaprine TAB* [Flexeril 10 MG TAB*] 10 mg PO BID PRN #20 tab PRN Reason: Spasms - Neck Patient Education Materials: Cervical Strain (ED) Forms: *Work Release Referrals: Joy Lazo PA [Primary Care Provider] - Additional Instructions: Continue use of heat to the neck, and gently move your neck through a range of motion. You have a referral for physical therapy should the restriction persist. I suggest a dose of muscle relaxant tonight followed by a good sleep, with anticipation that this will break the cycle of spasm. Following that you can use it as needed. - Billing Disposition and Condition Condition: STABLE Disposition: Home
[2019-08-02] MEDS ORDERED: Ketorolac *IM* INJ* 60 MG/2 ML VIAL IM ONE (18:30)
== END 2019-08-02 19:29 | disposition home or self-care (01) ==
LOC: UCEAST 17:39
DX: S16.1XXA Strain of muscle, fascia and tendon at neck level, initial encounter (principal); Z88.5 Allergy status to narcotic agent; Z88.8 Allergy status to other drugs, medicaments and biological substances; X50.9XXA Other and unspecified overexertion or strenuous movements or postures, initial encounter; Y93.89 Activity, other specified; Y92.9 Unspecified place or not applicable
CPT/HCPCS: 96372; 99212; G0463; J1885